=== PATIENT | male | born 1955 | race Caucasian/White ===

== ENCOUNTER 2020-05-03 19:34 | Inpatient (IN) | payer OTHER, MEDICARE, SELFPAY ==
[2020-05-03 19:34] VITALS: BP 127/70; PULSE 85; RESP 18; TEMP 36.2; O2SAT 95; BMI 45.6
--- NOTE | 2020-05-03 19:43 | EKG12_ITS ---
Test Reason : SYNCOPE Blood Pressure : / mmHG Vent. Rate : 084 BPM Atrial Rate : 084 BPM P-R Int : 150 ms QRS Dur : 084 ms QT Int : 400 ms P-R-T Axes : 036 012 007 degrees QTc Int : 472 ms Normal sinus rhythm Inferior infarct , age undetermined , cannot be excluded Poor R wave progression Abnormal ECG Confirmed by DREAD LYNN, KETAN ([id number]), continuity editor TIA SHERMAN ([id number]) on 05/05/2020 9:12:57 AM Referred By: DL Confirmed By:KETAN CANADA MD
--- NOTE | 2020-05-03 19:43 | CT_ITS ---
STUDY: CT BRAIN WITHOUT CONTRAST REASON FOR EXAM: Male, 65 years old. CONFUSION, WEAKNESS WORSENING THE PAST FEW DAYS RADIATION DOSAGE (If Supplied By Facility): CTDIvol = ( 44.99 ) mGy, DLP = ( 829.85 ) mGycm TECHNIQUE: Transaxial CT imaging of the brain was performed without administration of intravenous contrast material. Individualized dose optimization techniques were used for this CT. COMPARISON: No relevant priors. FINDINGS: Normal soft tissue structures. Normal calvarium. Normal size ventricles and extra-axial spaces for the patient''s age. Normal white matter tracts of the cerebral hemispheres. Probable old lacunar infarct in the left basal ganglia. Normal thalami. Normal brainstem. Normal cerebellum. There is no intracranial hemorrhage. There are no findings of an acute ischemic infarction. Left frontal sinus mucosal thickening. CT/Brain/Head without Contrast IMPRESSION: Normal unenhanced CT scan of the brain. Electronically Signed: Yakov Don DO at 20:47 EDT Tel [phone], Service support ,
--- NOTE | 2020-05-03 19:44 | ED.DCSUM_ITS ---
History of Present Illness Chief Complaint: Weakness Informant: Patient, Friend Onset: Days Context: Gradual Onset Timing: Continuous Current Severity: Moderate Maximum Severity: Moderate Narrative: Patient is a 65-year-old male with medical history significant for diabetes who presents to the emergency department with generalized weakness. Patient states for the past 3 or 4 days, he has just not been feeling himself. He has had diminished appetite, has been feeling lightheaded, and just had no energy. He denies any fevers or chills. He denies cough or headache. He states that he does not feel steady on his feet. History is hard to gather from the patient because he does appear to be confused. Friend at the bedside said genevieve was called to his house today but he refused transport. His friend is the one that brought him in. The patient states that he has not taken his medications in a few days. He does not monitor his blood sugar. Prior similar symptoms: No Recent Illness/Hospitalization: No Past Medical History - Allergies and Home Meds Allergies/Adverse Reactions: Allergies Unable to Assess Allergy (Verified 05/03/20 19:37) Primary Care Physician: [place] [place] [Primary Care Provider] - Prior records reviewed: Yes Past Medical History: - - Diabetes Surgical History: noncontributory Review of Systems ROS: Unable to Obtain Physical Exam Vital Signs/Narrative: Vital Signs Temp Pulse Resp BP Pulse Ox 05/03/20 19:34 97.1 F L 85 18 127/70 H 95 Inital Vital Signs reviewed: Yes General: Well nourished, Well developed, Obese Head: Normocephalic, Atraumatic Eyes: Perrl, EOMI ENT: Moist mucous membranes, No rhinorrhea Neck: Supple, Nontender Cardiovascular: Regular rate, Regular rhythm, No murmurs Respiratory: No distress, CTA bilaterally, Chest nontender Abdomen: Soft, Nontender, Nondistended, Normal bowel sounds Back: Nontender, Normal Inspection Extremities: Nontender, Edema Skin: Normal color, No rash Neurological: Cranial nerves II-XII grossly intact, Normal Strength, Normal Sensation, Inattentive Psychological: Normal affect, Normal Mood Diagnostic/Tx/Re-eval Clinical Impression(s) from Imaging Studies Brain CT 05/03/20 19:43 IMPRESSION: Normal unenhanced CT scan of the brain. Electronically Signed: Yakov Don DO at 20:47 EDT Tel [phone], Service support , Chest X-Ray 05/03/20 20:20 IMPRESSION: Mild patchy interstitial prominence. Electronically Signed: Yakov Don DO at 20:51 EDT Tel [phone], Service support , Abnormal Lab Results 05/03/20 05/03/20 05/03/20 19:50 19:50 21:05 WBC 4.3 L RBC 5.44 Hgb 15.6 Hct 48.1 MCV 88.4 MCH 28.7 MCHC 32.4 RDW Std Deviation 41.6 RDW Coeff of Neil 12.8 Plt Count 151 MPV 10.3 Immature Gran % (Auto) 0.700 Neut % (Auto) 72.7 H Lymph % (Auto) 19.2 Hawkins % (Auto) 7.2 Eos % (Auto) 0.0 Baso % (Auto) 0.2 Absolute Neuts (auto) 3.1 Absolute Lymphs (auto) 0.82 L Nucleated RBC % 0 Platelet Estimate ADEQUATE RBC Morphology N CHROM Anisocytosis RARE Sodium 133 L Potassium 3.8 Chloride 99 Carbon Dioxide 25.0 Anion Gap 9 BUN 16 Creatinine 1.36 H Estim Creat Clear Calc 50.99 Est GFR (MDRD) Af Amer 67 Est GFR (MDRD) Non-Af 56 L BUN/Creatinine Ratio 11.8 Glucose 148 H Calcium 7.9 L Total Bilirubin 0.90 AST 100 H ALT 92 H Alkaline Phosphatase 66 Total Protein 7.5 Albumin 3.0 L Globulin 4.5 H Albumin/Globulin Ratio 0.7 L Urine Color Urine Clarity Urine pH Ur Specific [place] Urine Protein Urine Glucose (UA) Urine Ketones Urine Occult Blood Urine Nitrite Urine Bilirubin Urine Urobilinogen Ur Leukocyte Esterase Urine RBC Urine WBC Ur Squamous Epith Cells Urine Bacteria Hyaline Casts Urine Mucus COVID-19 (CHAITANYA) Detected 05/03/20 22:22 WBC RBC Hgb Hct MCV MCH MCHC RDW Std Deviation RDW Coeff of Neil Plt Count MPV Immature Gran % (Auto) Neut % (Auto) Lymph % (Auto) Hawkins % (Auto) Eos % (Auto) Baso % (Auto) Absolute Neuts (auto) Absolute Lymphs (auto) Nucleated RBC % Platelet Estimate RBC Morphology Anisocytosis Sodium Potassium Chloride Carbon Dioxide Anion Gap BUN Creatinine Estim Creat Clear Calc Est GFR (MDRD) Af Amer Est GFR (MDRD) Non-Af BUN/Creatinine Ratio Glucose Calcium Total Bilirubin AST ALT Alkaline Phosphatase Total Protein Albumin Globulin Albumin/Globulin Ratio Urine Color Yellow Urine Clarity Sl. Cloudy Urine pH 5.0 Ur Specific [place] 1.025 Urine Protein 100 H Urine Glucose (UA) 50 H Urine Ketones 15 H Urine Occult Blood 10 H Urine Nitrite Negative Urine Bilirubin 1 H Urine Urobilinogen 8 H Ur Leukocyte Esterase 25 H Urine RBC 0 SEEN Urine WBC 0-5 SEEN Ur Squamous Epith Cells 5-10 SEEN Urine Bacteria 0 SEEN Hyaline Casts 5-10 SEEN Urine Mucus 1+ COVID-19 (CHAITANYA) - Rhythm Strip Rhythm Strip: Sinus Rhythm Rate: 80 Ectopy: None - EKG Initial EKG Interpretation: Sinus Rhythm, No Acute Injury Pattern Prior: No Prior - Medical Decision Making The patient is a 65-year-old male who presents to the emergency department with confusion and generalized malaise. I did watch him ambulate. He does have definitive ataxia when he is ambulating. Noncontrast head CT was obtained. This was unremarkable for acute process. The patient has had the symptoms for 3 days. Chest x-ray showed questionable interstitial prominence. The patient is not hypoxic or tachycardic. Screening labs are relatively unremarkable. Covid test was positive. With the patient's Covid symptoms and ataxia, I do feel that he would benefit from admission for potential MRI. The patient was discussed with the hospitalist. Impression 1. COVID-19 infection 2. Ataxia ED Disposition - Plan for ED Patient: [facility] [Primary Care Provider] -
[2020-05-03 20:01] VITALS: PULSE 84; RESP 23; O2SAT 96
[2020-05-03 20:04] LABS: Absolute Lymphocyte Count 0.82 X10^3/uL (0.83-4.51); Absolute Neutrophil Count 3.1 X10^3/uL (2.0-7.7); Basophil# 0.01 X10^3/uL; Basophil% 0.2 % (0-1); Hematocrit 48.1 % (40-54); Hemoglobin 15.6 g/dL (13.0-16.5); Lymphocyte # 0.82 X10^3/ul (4.0); Lymphocyte % 19.2 % (19-41); Mean Corp Hgb Conc 32.4 g/dL (32-36); Mean Corpuscular Hgb 28.7 pg (27.0-32.0); Mean Corpuscular Volume 88.4 fL (80-94); Mean Platelet Vol. 10.3 fl (6.2-12.0); Monocyte# 0.31 X10^3/uL; Monocyte% 7.2 % (0-10); NRBC Flagged by Analyzer 0 % (0-5); Neutrophil # 3.11 X10^3/uL (2.7-7.7); Neutrophil % 72.7 % (47-70); POSITIVE MORPHOLOGY YES; Platelet Count 151 K/mm3 (150-450); RBC Distribution Width CV 12.8 % (11.6-14.6); RBC Distribution Width SD 41.6 fl (35.1-43.9); Red Blood Count 5.44 M/mm3 (4.6-6.2); White Blood Count 4.3 K/mm3 (4.4-11.0)
[2020-05-03 20:20] LABS: ALB/GLOB Ratio 0.7 RATIO (0.9-2.4); AST(SGOT) 100 U/L (15-37); Alanine Aminotransfer ALT/SGPT 92 U/L (16-61); Alkaline Phosphatase 66 U/L (45-117); Anion Gap 9 (5-15); BUN 16 mg/dL (7-18); BUN/Creat Ratio 11.8 RATIO (10-20); Calcium,Total 7.9 mg/dL (8.5-10.1); Chloride 99 mmol/L (98-107); Creatinine, Serum 1.36 mg/dL (0.70-1.30); EST Glomerular Filtration Rate 56 mL/min (>60); Est Glom Filt Rate - Afr Amer 67 mL/min (>60); Estimated Creatinine Clearance 50.99 ml/min; Globulin 4.5 g/dL (2.2-4.2); Glucose 148 mg/dL (74-106); Potassium 3.8 mmol/L (3.5-5.1); Protein, Total 7.5 g/dL (6.4-8.2); Sodium Level 133 mmol/L (136-145)
--- NOTE | 2020-05-03 20:20 | RAD_ITS ---
STUDY: X-RAY CHEST REASON FOR EXAM: Male, 65 years old. WEAKNESS, CONFUSION. WORSENING OVER PAST FEW DAYS. PT UNABLE TO ANSWER SIMPLE HEALTH QUESTIONS IN TRIAGE. TECHNIQUE: Frontal view COMPARISON: None. FINDINGS: Slightly elevated right hemidiaphragm. Patchy interstitial densities bilaterally. Normal size heart. Normal mediastinum and nidhi. Normal visualized pulmonary arteries. Normal visualized aortic arch and descending thoracic aorta. Degenerative changes of the thoracic spine. Right clavicular old injury. There is no demonstrated abnormality of the visualized soft tissue structures of the upper abdomen. RAD/Chest 1 View (Portable) IMPRESSION: Mild patchy interstitial prominence. Electronically Signed: Yakov Don DO at 20:51 EDT Tel [phone], Service support ,
[2020-05-03 20:38] LABS: Differential Indicated SCAN CRITERIA MET
[2020-05-03 21:02] LABS: Anisocytosis RARE; Platelet Estimate ADEQUATE (ADEQ); Red Cell Morphology N CHROM NORMAL (NORM C&C)
[2020-05-03 21:44] VITALS: BP 149/57; PULSE 80; RESP 29; O2SAT 96
[2020-05-03 22:08] VITALS: BP 174/68; PULSE 90; RESP 24; O2SAT 96
[2020-05-03 22:28] LABS: Bacteria 0 SEEN /hpf (None Seen); Red Blood Cells-Urine 0 SEEN /hpf (0-5)
[2020-05-03 22:29] LABS: Color, Urine Yellow (Yellow); Glucose, Dipstick 50 mg/dl (Normal); Ketone-Dipstick 15 mg/dl (Negative); Leukocyte Esterase-Dipstick 25 /ul (Negative); Nitrite-Dipstick Negative (Negative); Occult Blood-Urine 10 /ul (Negative); Protein-Dipstick 100 mg/dl (Negative); Specific Gravity, Urine 1.025 (1.002-1.030); Urine Clarity Sl. Cloudy (Clear); Urine Urobilinogen 8 mg/dl (Normal)
[2020-05-03 22:43] LABS: Hyaline Cast 5-10 SEEN /lpf (0-5); Mucous, Urine 1+ /hpf (<or=2+); Squamous Epithelial Cells - UA 5-10 SEEN /hpf (0-5); Urine Bilirubin Dipstick 1 mg/dL (Negative); White Blood Cells 0-5 SEEN /hpf (0-5)
[2020-05-03 23:58] VITALS: BP 166/73; PULSE 84; RESP 16; O2SAT 100
[2020-05-04] VITALS (9 sets, daily range): BP systolic 144–164; BP diastolic 63–81; PULSE 85–100; RESP 16–31; TEMP 36.8–38.4; O2SAT 92–99; BMI 40.5; BMI 40.6
--- NOTE | 2020-05-04 01:10 | PCM.HP.STD ---
Problem List (1) Ataxia Status: Acute (2) COVID-19 virus infection Status: Acute History of Present Illness Date of Admission: 05/04/20 Chief Complaint: malaise The patient is a 65 year old M with a significant history of hypertension and diabetes who presents emergency department with malaise for 3 to 4 days. Reportedly patient did not want to come to the hospital but his brother made him come in. Associated with his symptoms is fatigue, weakness and intermittent nonproductive cough. Also patient is unsteady on his feet. Emergent department doctor reportedly observed patient's walking and realized that indeed patient was very unsteady on his feet and actually recommend the patient have an MRI. Also although patient denies confusion he reported his brother thought that he was confused. Past Medical History Medical History: Medical History (Last Updated 05/04/20 @ 01:[address] Jethro López MD) Diabetes E11.9 Hypertension I10 Allergies Unable to Assess Allergy (Verified 05/03/20 19:37) Home Medications: Ambulatory Orders Medication Instructions Recorded Atenolol [Tenormin (beta Filipe)] 25 mg PO DAILY 05/04/20 Glipizide [Glucotrol] 10 mg PO BID 05/04/20 Lisinopril [Zestril] 30 mg PO DAILY 05/04/20 Surgical History: no surgical history Smoking Status: Never smoker Tobacco Use: Non-smoker - *Family History Maternal History Items: - - Patient denies knowledge of maternal medical history. Paternal History Items: Heart Disease Review of Systems Constitutional: Reports: Weakness, Fatigue. Denies: Chills, Fever, Weight Change HEENT: Denies: Head Aches, Sinus Congestion, Sinus Drainage Cardiovascular: Denies: Chest Pain, Palpitations Respiratory: Reports: Cough - Intermittent. Denies: Shortness of breath at rest, Sputum production Gastrointestinal: Denies: Abdominal Pain, Nausea, Vomiting Genitourinary: Denies: Dysuria Musculoskeletal: Denies: Joint Pain, Joint Tenderness Skin: Denies: Rash, Wounds Neurological: Denies: Numbness, Tingling, Focal weakness Psychiatric: Denies: Anxiety, Depression, Homicidal Ideations, Suicidal Ideations Hematologic/ Lymphatic: Denies: Easy Bruising, Easy Bleeding VTE Information - Inpt Only VTE Present on Admission: No VTE Mechan Device Prophylaxis: None VTE Pharm Prophylaxis ordered?: Yes Patient Problems: Active and Suspected Problems (Last Updated 05/04/20 @ 01:[address] Jethro López MD) Ataxia (Acute) COVID-19 virus infection (Acute) - Physical Exam Vitals/I&O's: Vital Signs Temp Pulse Resp BP Pulse Ox 98.2 F 88 31 H 158/81 H 99 05/04/20 00:20 05/04/20 00:20 05/04/20 00:20 05/04/20 00:20 05/04/20 00:20 Oxygen Delivery Method Room Air Weight: 136.078 kg Body Mass Index (BMI) 45.6 Intake and Output for Last 24 Hours 05/02/20 05/03/20 05/04/20 23:59 23:59 23:59 Intake Total 500 / 500 Balance 500 / 500 General: Alert, Oriented x3, Cooperative HEENT: Atraumatic, PERRLA, EOMI, Normocephalic Neck: Supple, No JVD, Negative Carotid Bruits Lungs: Clear to auscultation, Normal air movement Cardiovascular: Regular rate, Normal S1, Normal S2, No murmurs Abdomen: Bowel Sounds Present, Soft, Non Tender Extremities: No edema, Capillary Refill Less than 3 Seconds Skin: No rashes, No breakdown Musculoskeletal: No Tenderness to Palpation of Joints or Extremities Neurological: Cranial nerves II-XII grossly intact, Deep Tendon Reflexes 2+/4 and Symmetrical, Neuro grossly intact, Motor Exam 5/5 strength throughout, - - [id number] test normal. Psych/Mental Status: Normal Affect, Appropriate Laboratory Results 05/03/20 19:50: WBC 4.3 L, RBC 5.44, Hgb 15.6, Hct 48.1, MCV 88.4, MCH 28.7, MCHC 32.4, RDW Std Deviation 41.6, RDW Coeff of Neil 12.8, Plt Count 151, MPV 10.3, Immature Gran % (Auto) 0.700, Neut % (Auto) 72.7 H, Lymph % (Auto) 19.2, Douglas % (Auto) 7.2, Eos % (Auto) 0.0, Baso % (Auto) 0.2, Absolute Neuts (auto) 3.1, Absolute Lymphs (auto) 0.82 L, Nucleated RBC % 0, Platelet Estimate ADEQUATE, RBC Morphology N CHROM, Anisocytosis RARE 05/03/20 19:50: Sodium 133 L, Potassium 3.8, Chloride 99, Carbon Dioxide 25.0, Anion Gap 9, BUN 16, Creatinine 1.36 H, Estim Creat Clear Calc 50.99, Est GFR (MDRD) Af Amer 67, Est GFR (MDRD) Non-Af 56 L, BUN/Creatinine Ratio 11.8, Glucose 148 H, Calcium 7.9 L, Total Bilirubin 0.90, AST 100 H, ALT 92 H, Alkaline Phosphatase 66, Total Protein 7.5, Albumin 3.0 L, Globulin 4.5 H, Albumin/Globulin Ratio 0.7 L 05/03/20 21:05: COVID-19 (CHAITANYA) Detected 05/03/20 22:22: Urine Color Yellow, Urine Clarity Sl. Cloudy, Urine pH 5.0, Ur Specific [place] 1.025, Urine Protein 100 H, Urine Glucose (UA) 50 H, Urine Ketones 15 H, Urine Occult Blood 10 H, Urine Nitrite Negative, Urine Bilirubin 1 H, Urine Urobilinogen 8 H, Ur Leukocyte Esterase 25 H, Urine RBC 0 SEEN, Urine WBC 0-5 SEEN, Ur Squamous Epith Cells 5-10 SEEN, Urine Bacteria 0 SEEN, Hyaline Casts 5-10 SEEN, Urine Mucus 1+ Current Medications Labetalol HCl (Labetalol (Prefilled) 20 Mg/4 Ml) 10 mg IV Q4 PRN PRN Reason: SBP > 220 OR DBP > 120 Assessment/Plan All Active Problems (Last Updated 05/04/20 @ 01:[address] Jethro López MD) Ataxia (Acute) COVID-19 virus infection (Acute) COVID-19 infection Chest x-ray interpreted by radiologist and chest x-ray image reviewed by me: Mild patchy interstitial prominence. We will observe patient at the Covid cohort unit. Infectious disease consult and pulmonary medicine consult. Patient with no symptoms of shortness of breath. Patient has no fever. Procalcitonin, Legionella urine antigen and strep pneumoniae urine antigen ordered. Ataxia CT brain did not show any acute disease. We will order MRI brain without contrast We will start patient on aspirin Hold home blood pressure medication. Permissive hypertension with blood pressure control with labetalol. Check vitamin B12. Diabetes mellitus Patient with hyperglycemia presentation Home glipizide continue Accu-Chek q. ACH S. Hypertension Blood pressure elevated. However with ataxia we will hold off home blood pressure medication. Permissive hypertension with labetalol as above. Trend blood pressures. DVT prophylaxis Subcutaneous Lovenox by Covid protocol. OBSV E&M: [id number] Initial observation care L2
--- NOTE | 2020-05-04 01:26 | MRI_ITS ---
We are attempting to reach an attending provider to discuss findings. An addendum with communication details will be sent when the communication is complete. STUDY: MRI BRAIN WITHOUT CONTRAST REASON FOR EXAM: Male, 65 years old. ataxia, PT UNABLE TO FOLLOW COMMANDS, COVID POSITIVE TECHNIQUE: Standardized multiplanar fat and water weighted pulse sequences were obtained. COMPARISON: CT 05/03/2020 FINDINGS: Normal size of the ventricles and extra-axial spaces for the patient''s age. Normal white matter tracts of the supratentorial brain. Hyperintensities of the left side of the nikki and in the inferior right occipital lobe which demonstrate restricted diffusion consistent with acute/subacute infarcts. Normal T2* images of the brain without demonstrated susceptibility artifact. There is no demonstrated hemosiderin stain. Normal bilateral basal ganglia. Normal thalami. There is no extra-axial fluid accumulation. Normal flow voids within the major intracranial circulation suggesting patency by spin echo criteria. Normal sella turcica, pituitary gland, infundibular stalk, optic chiasm and hypothalamus. Normal tectal plate and pineal gland. Normal midbrain, nikki and medulla. Normal cerebellum. Normal basal cisterns. Normal bilateral temporal bones. Normal bilateral internal auditory canals. No demonstrated orbital abnormality, within the constraints of a routine brain study. Opacification of the left frontal sinus consistent with acute sinusitis. Normal calvarium and skull base. Normal visualized soft tissue structures. Normal visualized upper cervical spine. 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 Electronically Signed: Gordon Sharpe MD at 13:48 EDT Tel , Service support ,
[2020-05-04 06:49] LABS: Absolute Neutrophil Count 2.8 X10^3/uL (2.0-7.7); Basophil# 0.01 X10^3/uL; Basophil% 0.2 % (0-1); Hematocrit 43.1 % (40-54); Hemoglobin 14.2 g/dL (13.0-16.5); Lymphocyte % 24.4 % (19-41); Mean Corp Hgb Conc 32.9 g/dL (32-36); Mean Corpuscular Volume 88.1 fL (80-94); Mean Platelet Vol. 11.7 fl (6.2-12.0); Monocyte# 0.28 X10^3/uL; Monocyte% 6.8 % (0-10); NRBC Flagged by Analyzer 0 % (0-5); Neutrophil # 2.77 X10^3/uL (2.7-7.7); Neutrophil % 67.9 % (47-70); POSITIVE COUNT YES; POSITIVE MORPHOLOGY YES; Platelet Count 112 K/mm3 (150-450); RBC Distribution Width CV 12.6 % (11.6-14.6); Red Blood Count 4.89 M/mm3 (4.6-6.2); White Blood Count 4.1 K/mm3 (4.4-11.0)
[2020-05-04 07:06] LABS: Differential Indicated SCAN CRITERIA MET
[2020-05-04 07:17] LABS: ALB/GLOB Ratio 0.7 RATIO (0.9-2.4); AST(SGOT) 89 U/L (15-37); Alanine Aminotransfer ALT/SGPT 78 U/L (16-61); Albumin, Serum 2.7 g/dL (3.2-5.0); Alkaline Phosphatase 56 U/L (45-117); Anion Gap 9 (5-15); BUN 15 mg/dL (7-18); BUN/Creat Ratio 17.1 RATIO (10-20); Calcium,Total 7.6 mg/dL (8.5-10.1); Chloride 99 mmol/L (98-107); Creatinine, Serum 0.88 mg/dL (0.70-1.30); EST Glomerular Filtration Rate 92 mL/min (>60); Est Glom Filt Rate - Afr Amer 112 mL/min (>60); Estimated Creatinine Clearance 78.81 ml/min; Glucose 105 mg/dL (74-106); Potassium 3.5 mmol/L (3.5-5.1); Protein, Total 6.7 g/dL (6.4-8.2); Sodium Level 133 mmol/L (136-145)
[2020-05-04 07:29] LABS: Platelet Estimate SLT DEC (ADEQ)
[2020-05-04 07:30] LABS: Atypical Lymphocyte RARE %
[2020-05-04 07:31] LABS: Bedside Glucose 114 mg/dL (70-110)
[2020-05-04 07:31] LABS: Anisocytosis RARE; Differential Comment SCANNED; Platelet Morphology CLUMPED
--- NOTE | 2020-05-04 08:00 | PCM.PN.BLA ---
Progress Note 65-year-old male with past medical history of hypertension type II DM who comes in with fatigue, cough and shortness of breath. Patient was seen and examined. He remains not on oxygen. Vitals reviewed. Procalcitonin elevated. Urine Legionella and streptococcal antigen negative. MRI of the brain is pending. Vitamin B12 is elevated. Blood sugars are controlled. Will review and reevaluate home blood pressure medications after MRI brain report is done Awaiting PT/OT evaluations
[2020-05-04 09:38] LABS: Procalcitonin 0.21 ng/mL (0.00-0.09); Vitamin B12 1047 pg/mL (211-911)
[2020-05-04] MEDS: glipiZIDE 10 MG Tablet PO (10:12)
[2020-05-04] MEDS: Aspirin E.C. 81 MG Tablet PO (10:12)
[2020-05-04] MEDS: Acetaminophen 325 MG Tablet 650 MG PO (10:12)
[2020-05-04] MEDS: Enoxaparin 40 MG/0.4 ML Syringe SC ×2 (10:12→21:46)
--- NOTE | 2020-05-04 14:01 | TELEMED_ITS ---
[facility] Tele[facility] has confirmed receipt of a request for visit. This document confirms receipt of the order initiating the consult. To find the results of the consultation, please view the patient's reports for the scanned Telemed Consult.
--- NOTE | 2020-05-04 14:03 | ECHOL_ITS ---
Reason For Study: TIA/CVA Procedure This was a limited 2D transthoracic echocardiogram. The exam was abbreviated due to the COVID 19 protocol. Exam performed portable in patient room. Left Ventricle Normal LV size. The estimated ejection fraction is 55 %. No evidence for diastolic dysfunction. No regional wall motion abnormalities noted. Right Ventricle Normal RV size. Normal systolic function. Atria Normal left atrium. Normal right atrium. Bubble contrast study negative for right to left interatrial shunt. Mitral Valve There is no mitral valve stenosis. No mitral valve insufficiency. Tricuspid Valve There is no tricuspid stenosis. Unable to estimate RV systolic pressure due to inadequate jet, pulmonary artery pressure probably normal. Aortic Valve Aortic sclerosis, no stenosis. There is no aortic stenosis. No aortic valve insufficiency. Pulmonic Valve There is no pulmonic valvular stenosis. No pulmonic valve insufficiency. Great Vessels Normal aortic root. Pericardium/Pleural No pericardial effusion. Medication Performed a rapid injection of agitated mix of 9 cc saline and 1cc air to assess for atrial septal defect. MMode/2D Measurements & Calculations LVIDd: 5.0 cm IVSd: 1.1 cm Ao root diam: 3.3 cm LVIDs: 3.4 cm LVPWd: 1.4 cm FS: 32.9 % LA dimension(2D): 3.7 cm Interpretation Summary The estimated ejection fraction is 55 %. No evidence for diastolic dysfunction. The study was technically difficult. Ordering Physician: Rebecca Hubbard Performed By: Sarah Pagan RDCS
--- NOTE | 2020-05-04 14:08 | CASEMGMT ---
RN CM called patient for initial transition planning/care coordination assessment. RN GEM introduced self and role at [facility]. Patient is alert and oriented. Patient willing to participate in assessment and is able to answer all questions appropriately. Care providers, pharmacy, and demographics verified. Patient wishes to discharge home, denies need for home health at this time. Patient states he has no further needs or concerns at this time. CM to follow for discharge planning needs that may arise. PCP: [facility] Specialists: [facility] Preferred Pharmacy: [facility], patient ok with [facility] retail at discharge. Insurance: [employer], [employer] [facility] PPO Prescription Benefit: yes Living Will/HPOA: yes, brother Dre LNOK: brother Rafael and Sister Gloria listed on facesheet Living Arrangements: Patient lives in a one story home with few steps to get into the home. Patient states he is independent. Transportation: self/friend DME/HHC: Patient states he has cane and glucometer with testing supplies. Patient states he know how to check blood sugars he just doesn't do it. Will monitor for need for HHC and oxygen at discharge. Disposition Plan: Patient to discharge home with follow-up plans in place. Huma MCMILLAN, RN, CM
--- NOTE | 2020-05-04 14:22 | NURSING ---
spoke with Rafael Esparza- pt brother and updated on pt status including transfer to PCU. Brother states he is personal financial advisor for patient and number listed in demographics for cell phone number is correct [phone].
--- NOTE | 2020-05-04 14:26 | CT_ITS ---
STUDY: CTA HEAD AND NECK WITH CONTRAST REASON FOR EXAM: Male, 65 years old. Acute stroke, confusion, trouble following commands, abnormal MRI-acute/subacute infarcts left nikki and amp; brain stem and right occipital lobe, COVID +. Patient coughed in the middle of the contrasted scan-second scan done. RADIATION DOSAGE (If Supplied By Facility): CTDIvol = ( 28.92 ) mGy, DLP = ( 2506.41 ) mGycm TECHNIQUE: CT angiography was performed with a multi-detector CT scanner. Data acquisition was obtained from the skull base through the vertex following intravenous administration of IV 100mL [id number]-370. MIP images were reconstructed from the axial data set. Post-processing of the angiographic images was performed, with multiplanar reformation and 3D reconstruction. Individualized dose optimization techniques were used for this CT. COMPARISON: No relevant priors. FINDINGS: Normal bilateral petrous carotid arteries. There is calcified plaque formation of the right cavernous carotid artery, without a cross-sectional luminal stenosis. There is calcified plaque formation of the left cavernous carotid artery, without a cross-sectional luminal stenosis. Normal right A1 segments of the anterior cerebral artery. Normal left A1 segments of the anterior cerebral artery. Normal intact anterior communicating artery (ACOM). Normal bilateral A2 segments of the anterior cerebral arteries. Normal right M1 and M2 segments of the middle cerebral arteries, with a normal M1 bifurcation. Normal left M1 and M2 segments of the middle cerebral arteries, with a normal M1 bifurcation. Normal right posterior communicating artery (PCOM). Normal left posterior communicating artery (PCOM). Normal bilateral vertebral arteries. Normal basilar artery with a normal basilar bifurcation. The visualized bilateral superior cerebellar (SCA) arteries are normal. Focal severe (80%) stenosis the proximal P1 segment of the right posterior cerebral artery with the attenuation of the distal posterior cerebral artery consistent with a right posterior cerebral artery infarct. There is no demonstrated aneurysm of the [place]. There is no demonstrated abnormality of the visualized brain. AORTIC ARCH: Normal visualized aortic arch. Normal origins of the brachiocephalic, left common carotid, and left subclavian arteries. RIGHT CAROTID ARTERIES: Normal right common carotid artery (CCA). Normal right common carotid bulb. Normal origin of the right internal carotid (ICA) artery without a hemodynamically significant stenosis. Normal visualized cervical portion of the right internal carotid artery. Normal origin of the right external carotid artery (ECA). LEFT CAROTID ARTERIES: Normal left common carotid artery (CCA). Normal left common carotid bulb. Normal origin of the left internal carotid (ICA) artery without a hemodynamically significant stenosis. Normal visualized cervical portion of the left internal carotid artery. Normal origin of the left external carotid artery (ECA). VERTEBRAL ARTERIES: Normal bilateral vertebral arteries. IMPRESSION: 1. 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 2. No carotid stenosis. 3. Patent vertebral arteries bilaterally. Electronically Signed: Gordon Sharpe MD at 17:23 EDT Tel , Service support , STUDY: CT BRAIN WITHOUT CONTRAST REASON FOR EXAM: Male, 65 years old. Acute stroke, confusion, trouble following commands, abnormal MRI-acute/subacute infarcts left nikki and amp; brain stem and right occipital lobe, COVID +. Patient coughed in the middle of the contrasted scan-second scan done. RADIATION DOSAGE (If Supplied By Facility): CTDIvol = ( ) mGy, DLP = ( ) mGycm TECHNIQUE: Transaxial CT imaging of the brain was performed without administration of intravenous contrast material. Individualized dose optimization techniques were used for this CT. COMPARISON: 05/03/2020 FINDINGS: Normal soft tissue structures. Normal calvarium. Normal size ventricles and extra-axial spaces for the patient''s age. Normal white matter tracts of the cerebral hemispheres. Normal basal ganglia and thalami. Normal brainstem. Normal cerebellum. There is no intracranial hemorrhage. There are no findings of an acute ischemic infarction. Opacification of the left frontal sinus consistent with sinusitis. CT/CTA Head AND Neck W/ Contrast IMPRESSION: Normal unenhanced CT scan of the brain. Electronically Signed: Gordon Sharpe MD at 17:22 EDT Tel , Service support ,
[2020-05-04 14:36] LABS: Bedside Glucose 170 mg/dL (70-110)
[2020-05-04 15:28] LABS: Hemoglobin A1c 10.2 % (3.8-5.6)
--- NOTE | 2020-05-04 16:22 | PCM.HP.ID ---
Problem List (1) COVID-19 virus infection Status: Acute Reason for Consult: covid Consulted by: Dr. Hubbard History of Present Illness: The patient is a 65 year old M with h/o htn, presented to the ED last night with 3-4 days of fatigue, not feeling well, developed confusion, difficulty walking. Taken to ED by his brother. He lives alone, no sick contacts. Covid (+), admitted on dex. Fever to 101.2. MRI this afternoon showed brain stem infarcts. Full ROS performed and neg except as noted above. - Medical History Surgical History: reviewed Allergies/Adverse Reactions: Allergies Unable to Assess Allergy (Verified 05/03/20 19:37) Home Medications: Ambulatory Orders Medication Instructions Recorded Atenolol [Tenormin (beta Filipe)] 25 mg PO DAILY 05/04/20 Glipizide [Glucotrol] 10 mg PO BID 05/04/20 Lisinopril [Zestril] 30 mg PO DAILY 05/04/20 - Social History Tobacco Use: non-smoker Vital Signs Temp Pulse Resp BP Pulse Ox 99.5 F H 85 16 144/70 H 92 05/04/20 16:16 05/04/20 16:16 05/04/20 16:16 05/04/20 16:16 05/04/20 16:16 Oxygen Delivery Method Room Air Weight: 121 kg Body Mass Index (BMI) 40.5 Microbiology Past 72 Hours 05/03/20 22:22 Legionella Antigen - Final Urine, Clean Catch Streptococcus pneumoniae Antigen (M - Final Laboratory Tests Past 24 Hrs 05/03/20 05/03/20 05/03/20 19:50 19:50 21:05 WBC 4.3 L RBC 5.44 Hgb 15.6 Hct 48.1 MCV 88.4 MCH 28.7 MCHC 32.4 RDW Std Deviation 41.6 RDW Coeff of Neil 12.8 Plt Count 151 MPV 10.3 Immature Gran % (Auto) 0.700 Neut % (Auto) 72.7 H Lymph % (Auto) 19.2 [place] % (Auto) 7.2 Eos % (Auto) 0.0 Baso % (Auto) 0.2 Absolute Neuts (auto) 3.1 Absolute Lymphs (auto) 0.82 L Nucleated RBC % 0 Differential Comment Atypical Lymphocytes Platelet Estimate ADEQUATE Plt Morphology Comment RBC Morphology N CHROM Anisocytosis RARE Sodium 133 L Potassium 3.8 Chloride 99 Carbon Dioxide 25.0 Anion Gap 9 BUN 16 Creatinine 1.36 H Estim Creat Clear Calc 50.99 Est GFR (MDRD) Af Amer 67 Est GFR (MDRD) Non-Af 56 L BUN/Creatinine Ratio 11.8 Glucose 148 H Hemoglobin A1c Calcium 7.9 L Total Bilirubin 0.90 AST 100 H ALT 92 H Alkaline Phosphatase 66 Total Protein 7.5 Albumin 3.0 L Globulin 4.5 H Albumin/Globulin Ratio 0.7 L Vitamin B12 Procalcitonin Urine Color Urine Clarity Urine pH Ur Specific [place] Urine Protein Urine Glucose (UA) Urine Ketones Urine Occult Blood Urine Nitrite Urine Bilirubin Urine Urobilinogen Ur Leukocyte Esterase Urine RBC Urine WBC Ur Squamous Epith Cells Urine Bacteria Hyaline Casts Urine Mucus COVID-19 (CHAITANYA) Detected 05/03/20 05/04/20 05/04/20 22:22 05:20 05:20 WBC 4.1 L RBC 4.89 Hgb 14.2 Hct 43.1 MCV 88.1 MCH 29.0 MCHC 32.9 RDW Std Deviation 41.0 RDW Coeff of Neil 12.6 Plt Count 112 L MPV 11.7 Immature Gran % (Auto) 0.700 Neut % (Auto) 67.9 Lymph % (Auto) 24.4 [place] % (Auto) 6.8 Eos % (Auto) 0.0 Baso % (Auto) 0.2 Absolute Neuts (auto) 2.8 Absolute Lymphs (auto) 1.00 Nucleated RBC % 0 Differential Comment SCANNED Atypical Lymphocytes RARE Platelet Estimate SLT DEC Plt Morphology Comment CLUMPED RBC Morphology Anisocytosis RARE Sodium Potassium Chloride Carbon Dioxide Anion Gap BUN Creatinine Estim Creat Clear Calc Est GFR (MDRD) Af Amer Est GFR (MDRD) Non-Af BUN/Creatinine Ratio Glucose Hemoglobin A1c Calcium Total Bilirubin AST ALT Alkaline Phosphatase Total Protein Albumin Globulin Albumin/Globulin Ratio Vitamin B12 1047 H Procalcitonin 0.21 H Urine Color Yellow Urine Clarity Sl. Cloudy Urine pH 5.0 Ur Specific [place] 1.025 Urine Protein 100 H Urine Glucose (UA) 50 H Urine Ketones 15 H Urine Occult Blood 10 H Urine Nitrite Negative Urine Bilirubin 1 H Urine Urobilinogen 8 H Ur Leukocyte Esterase 25 H Urine RBC 0 SEEN Urine WBC 0-5 SEEN Ur Squamous Epith Cells 5-10 SEEN Urine Bacteria 0 SEEN Hyaline Casts 5-10 SEEN Urine Mucus 1+ COVID-19 (CHAITANYA) 05/04/20 05/04/20 05:20 05:20 WBC RBC Hgb Hct MCV MCH MCHC RDW Std Deviation RDW Coeff of Neil Plt Count MPV Immature Gran % (Auto) Neut % (Auto) Lymph % (Auto) [place] % (Auto) Eos % (Auto) Baso % (Auto) Absolute Neuts (auto) Absolute Lymphs (auto) Nucleated RBC % Differential Comment Atypical Lymphocytes Platelet Estimate Plt Morphology Comment RBC Morphology Anisocytosis Sodium 133 L Potassium 3.5 Chloride 99 Carbon Dioxide 25.0 Anion Gap 9 BUN 15 Creatinine 0.88 Estim Creat Clear Calc 78.81 Est GFR (MDRD) Af Amer 112 Est GFR (MDRD) Non-Af 92 BUN/Creatinine Ratio 17.1 Glucose 105 Hemoglobin A1c 10.2 H Calcium 7.6 L Total Bilirubin 0.90 AST 89 H ALT 78 H Alkaline Phosphatase 56 Total Protein 6.7 Albumin 2.7 L Globulin 4.0 Albumin/Globulin Ratio 0.7 L Vitamin B12 Procalcitonin Urine Color Urine Clarity Urine pH Ur Specific [place] Urine Protein Urine Glucose (UA) Urine Ketones Urine Occult Blood Urine Nitrite Urine Bilirubin Urine Urobilinogen Ur Leukocyte Esterase Urine RBC Urine WBC Ur Squamous Epith Cells Urine Bacteria Hyaline Casts Urine Mucus COVID-19 (CHAITANYA) - Other Studies Radiology: [] reviewed Other Studies: [] Route of nutrition/ use of supplements: [] Nutritional Intake: [] IV Site: [] Weeks Catheter: [] - Physical Exam General: Alert, Oriented x3, Cooperative HEENT: Atraumatic, PERRLA, EOMI Neck: Supple, No Nodes Lungs: Diminished Cardiovascular: Regular rate, Regular Rhythm Abdomen: Soft, Non Tender, Non-Distended Extremities: No edema Skin: No rashes IV Site: Peripheral, without redness Musculoskeletal: No Tenderness to Palpation of Joints or Extremities - Assessment/Plan Antibiotics: [] Assessment/Plan: [] Active and Suspected Problems (Last Updated 05/04/20 @ 01:[address] Jethro López MD) Ataxia (Acute) COVID-19 virus infection (Acute) covid with hypoxia and brainstem stroke - neuro consulted. Sat 92% on RA with recent onset of symptoms, will treat with dex and remdesivir. Will follow, thank you, d/w nursing
[2020-05-04] MEDS: 0.9% Normal Saline 1,000 ML 75 ML IV (16:33)
--- NOTE | 2020-05-04 16:56 | PCM.CONS.PUL ---
Problem List (1) Acute CVA (cerebrovascular accident) Status: Acute (2) Ataxia Status: Acute (3) COVID-19 virus infection Status: Acute Reason for Consult Date of Consultation: 05/04/20 Reason for Consultation: COVID-19 History of Present Illness: The patient is a 65 year old M, with past medical history listed below, who presented [facility] secondary to generalized weakness over the last 3 to 4 days. Patient was reportedly brought in by his brother because he was not acting like himself. Patient had a diminished appetite and had complained of feeling lightheaded with lack of energy. Patient denied any fevers or chills. Patient had not reported any cough or headache. Patient reportedly had not taken any of his baseline medications in the previous 1 to 2 days. Patient does not actively monitor his blood sugar. In the ER, patient was noted to have definitive ataxia. A noncontrast CT scan was unremarkable of the head. Patient reportedly had symptoms for 3 days, so was outside of the intervention window. Chest x-ray had showed some interstitial prominence despite patient not being tachycardic or hypoxic. COVID-19 testing had come back positive, so the patient was admitted to the floor and ordered an MRI. Laboratory work-up was relatively unremarkable except for a slightly elevated creatinine of 1.36. However, the patient did not have any leukocytosis. Patient did have a mildly elevated glucose at 148. By time I had seen the patient, he had had any MRI completed and was noted to have the findings listed below. Patient is very vague on when he had an onset of symptoms. Patient denies any history of respiratory problems and is never used an inhaler. Patient states he only has high blood pressure and diabetes. 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 Patient is not able to provide much of a reliable review of systems at this time. Past Medical History Medical History: Medical History (Last Updated 05/04/20 @ 01:[address] Jethro López MD) Diabetes E11.9 Hypertension I10 Allergies Unable to Assess Allergy (Verified 05/03/20 19:37) Home Medications: Ambulatory Orders Medication Instructions Recorded Atenolol [Tenormin (beta Filipe)] 25 mg PO DAILY 05/04/20 Glipizide [Glucotrol] 10 mg PO BID 05/04/20 Lisinopril [Zestril] 30 mg PO DAILY 05/04/20 Surgical History: no surgical history Smoking Status: Never smoker Tobacco Use: Non-smoker - *Family History Maternal History Items: - - Patient denies knowledge of maternal medical history. Paternal History Items: Heart Disease Review of Systems Unable to obtain accurate/complete ROS d/t: See HPI Patient Problems: Active and Suspected Problems (Last Updated 05/04/20 @ 01:[address] Jethro López MD) Ataxia (Acute) COVID-19 virus infection (Acute) Objective: All imaging reports were personally reviewed. Chest x-ray shows some mild patchy infiltrates with elevation of the right hemidiaphragm. - Physical Exam Vitals/I&O's: Vital Signs Temp Pulse Resp BP Pulse Ox 37.5 C H 85 16 144/70 H 92 05/04/20 16:16 05/04/20 16:16 05/04/20 16:16 05/04/20 16:16 05/04/20 16:16 Oxygen Delivery Method Room Air Weight: 121 kg Body Mass Index (BMI) 40.5 Intake and Output for Last 24 Hours 05/02/20 05/03/20 05/04/20 23:59 23:59 23:59 Intake Total 500 / 500 522 / 522 Balance 500 / 500 522 / 522 General: Alert, Cooperative, No apparent distress, Confused, - - No dysarthria appreciated. Morbidly obese. HEENT: Atraumatic, PERRLA, Normocephalic, - - Esotropia noted. Oral: Moist Mucosa, No Gingival or Mucosal Lesions/ Ulcerations Neck: Supple, No JVD, No Nodes, Trachea Midline Lungs: Clear to auscultation, Normal air movement, No rhonchi, No wheeze, No rales Cardiovascular: Regular rate, Regular Rhythm, Normal S1, Normal S2, No murmurs, No rub noted, No Gallop Abdomen: Bowel Sounds Present, Soft, Non Tender, Non-Distended, Obese Extremities: No clubbing, No cyanosis, No edema Skin: No rashes, No breakdown Musculoskeletal: No Tenderness to Palpation of Joints or Extremities, No Muscle Wasting Lymphatic: No Cervical, Supraclavicular, or Inguinal Adenopathy Neurological: - - Moves all extremities appropriately. Significant ataxia noted. Disconjugate gaze noted. Psych/Mental Status: Alert and oriented to time, place, person, mood and affect Microbiology Past 72 Hours 05/03/20 22:22 Urine, Clean Catch Legionella Antigen - Final 05/03/20 22:22 Urine, Clean Catch Streptococcus pneumoniae Antigen (M - Final Laboratory Results 05/03/20 19:50: WBC 4.3 L, RBC 5.44, Hgb 15.6, Hct 48.1, MCV 88.4, MCH 28.7, MCHC 32.4, RDW Std Deviation 41.6, RDW Coeff of Neil 12.8, Plt Count 151, MPV 10.3, Immature Gran % (Auto) 0.700, Neut % (Auto) 72.7 H, Lymph % (Auto) 19.2, [place] % (Auto) 7.2, Eos % (Auto) 0.0, Baso % (Auto) 0.2, Absolute Neuts (auto) 3.1, Absolute Lymphs (auto) 0.82 L, Nucleated RBC % 0, Platelet Estimate ADEQUATE, RBC Morphology N CHROM, Anisocytosis RARE 05/03/20 19:50: Sodium 133 L, Potassium 3.8, Chloride 99, Carbon Dioxide 25.0, Anion Gap 9, BUN 16, Creatinine 1.36 H, Estim Creat Clear Calc 50.99, Est GFR (MDRD) Af Amer 67, Est GFR (MDRD) Non-Af 56 L, BUN/Creatinine Ratio 11.8, Glucose 148 H, Calcium 7.9 L, Total Bilirubin 0.90, AST 100 H, ALT 92 H, Alkaline Phosphatase 66, Total Protein 7.5, Albumin 3.0 L, Globulin 4.5 H, Albumin/Globulin Ratio 0.7 L 05/03/20 21:05: COVID-19 (CHAITANYA) Detected 05/03/20 22:22: Urine Color Yellow, Urine Clarity Sl. Cloudy, Urine pH 5.0, Ur Specific [place] 1.025, Urine Protein 100 H, Urine Glucose (UA) 50 H, Urine Ketones 15 H, Urine Occult Blood 10 H, Urine Nitrite Negative, Urine Bilirubin 1 H, Urine Urobilinogen 8 H, Ur Leukocyte Esterase 25 H, Urine RBC 0 SEEN, Urine WBC 0-5 SEEN, Ur Squamous Epith Cells 5-10 SEEN, Urine Bacteria 0 SEEN, Hyaline Casts 5-10 SEEN, Urine Mucus 1+ 05/04/20 05:20: Vitamin B12 1047 H, Procalcitonin 0.21 H 05/04/20 05:20: WBC 4.1 L, RBC 4.89, Hgb 14.2, Hct 43.1, MCV 88.1, MCH 29.0, MCHC 32.9, RDW Std Deviation 41.0, RDW Coeff of Neil 12.6, Plt Count 112 L, MPV 11.7, Immature Gran % (Auto) 0.700, Neut % (Auto) 67.9, Lymph % (Auto) 24.4, [place] % (Auto) 6.8, Eos % (Auto) 0.0, Baso % (Auto) 0.2, Absolute Neuts (auto) 2.8, Absolute Lymphs (auto) 1.00, Nucleated RBC % 0, Differential Comment SCANNED, Atypical Lymphocytes RARE, Platelet Estimate SLT DEC, Plt Morphology Comment CLUMPED, Anisocytosis RARE 05/04/20 05:20: Sodium 133 L, Potassium 3.5, Chloride 99, Carbon Dioxide 25.0, Anion Gap 9, BUN 15, Creatinine 0.88, Estim Creat Clear Calc 78.81, Est GFR (MDRD) Af Amer 112, Est GFR (MDRD) Non-Af 92, BUN/Creatinine Ratio 17.1, Glucose 105, Calcium 7.6 L, Total Bilirubin 0.90, AST 89 H, ALT 78 H, Alkaline Phosphatase 56, Total Protein 6.7, Albumin 2.7 L, Globulin 4.0, Albumin/Globulin Ratio 0.7 L 05/04/20 05:20: Hemoglobin A1c 10.2 H 05/04/20 07:00: POC Glucose 114 H 05/04/20 13:28: POC Glucose 170 H Current Medications Acetaminophen (Acetaminophen 325 Mg Tablet) 650 mg PO Q6H PRN PRN PRN Reason: Pain Score 1-10/Temp > 100.7 F Last Admin: 05/04/20 10:12 Dose: 650 mg Documented by: Aspirin (Aspirin E.C. 81 Mg Tablet) 81 mg PO DAILY [facility] Last Admin: 05/04/20 10:15 Dose: Not Given Documented by: Dexamethasone (Dexamethasone 4 Mg Tablet) 6 mg PO DAILY@0800 [facility] Stop: 05/13/20 08:01 Dextrose (Dextrose 50%-Water 25 Gm/50 Ml Disp.Syrin) 0 gm IV X1 PRN; Protocol PRN Reason: Hypoglycemia Enoxaparin Sodium (Enoxaparin 40 Mg/0.4 Ml Syringe) 40 mg SC BID [facility] Last Admin: 05/04/20 10:12 Dose: 40 mg Documented by: Famotidine (Famotidine 20 Mg Tablet) 20 mg PO BID ERICA Glipizide (Glipizide 10 Mg Tablet) 10 mg PO BID [facility] Last Admin: 05/04/20 10:12 Dose: 10 mg Documented by: Glucagon (Glucagon 1 Mg/Ml Syringe) 1 mg IM .X1 PRN PRN Reason: Hypoglycemia Sodium Chloride () 1,000 mls @ 75 mls/hr IV .[id number] [facility] Stop: 05/05/20 03:49 Last Admin: 05/04/20 16:33 Dose: 75 mls/hr Documented by: Remdesivir (Investigational) (100 mg/ Sodium Chloride) 250 mls @ 125 mls/hr IV DAILY ERICA; Protocol Stop: 05/08/20 11:59 Remdesivir (Investigational) (200 mg/ Sodium Chloride) 250 mls @ 125 mls/hr IV X1 ONE; Protocol Stop: 05/04/20 18:59 Labetalol HCl (Labetalol (Prefilled) 20 Mg/4 Ml) 10 mg IV Q4 PRN PRN Reason: SBP > 220 OR DBP > 120 Melatonin (Melatonin 3 Mg Tablet) 3 mg PO QHS PRN PRN PRN Reason: INSOMNIA Nutritional Formula (Lactose Free) (Glucerna Shake 120 Ml Liquid) 120 ml PO 4X/DAY [facility] Last Admin: 05/04/20 16:24 Dose: Not Given Documented by: Ondansetron HCl (Ondansetron 4 Mg/2 Ml Vial) 4 mg IV Q8H PRN PRN PRN Reason: NAUSEA/VOMITING Sodium Chloride (0.9% Saline Lock 10 Ml Syringe) 10 - 40 ml IV UD PRN PRN Reason: SALINE FLUSH Clinical Impression(s) from Imaging Studies Brain CT 05/03/20 19:43 IMPRESSION: Normal unenhanced CT scan of the brain. Electronically Signed: Yakov Don DO at 20:47 EDT Tel [phone], Service support , Chest X-Ray 05/03/20 20:20 IMPRESSION: Mild patchy interstitial prominence. Electronically Signed: Yakov Don DO at 20:51 EDT Tel [phone], Service support , Brain MRI 05/04/20 01:26 IMPRESSION: Acute/subacute infarcts of the the left side of the nikki and brainstem and the right occipital lobe. Electronically Signed: Gordon Sharpe MD at 13:48 EDT Tel , Service support , ADDENDUM: 05/04/20 1403 IMPRESSION: Acute/subacute infarcts of the the left side of the nikki and brainstem and the right occipital lobe. N.B. : The above information has been verbally conveyed by Gordon Sharpe MD to FLORES carrillo, on 05/04/2020 13:56:43 (ET). Electronically Signed: Gordon Sharpe MD at 13:48 EDT Tel , Service support , ADDENDUM: 05/04/20 1409 IMPRESSION: Acute/subacute infarcts of the the left side of the nikki and brainstem and the right occipital lobe. N.B. : The above information has been verbally conveyed by Gordon Sharpe MD to Cate Ferrell RN, on 05/04/2020 14:02:03 (ET). Electronically Signed: Gordon Sharpe MD at 13:48 EDT Tel , Service support , Assessment/Plan All Active Problems (Last Updated 05/04/20 @ 01:[address] Jethro López MD) Ataxia (Acute) COVID-19 virus infection (Acute) Acute CVA (cerebrovascular accident) (Acute) RECOMMENDATIONS: 1. Acute CVA protocol 2. Monitor oxygen saturations 3. Dexamethasone and remdesivir per infectious disease 4. Please call if patient develops worsening respiratory problems IMPRESSIONS: 1. COVID-19 infection Unclear onset of symptoms as patient does not provide much reliable information. It appears the patient may have been infected in the last 3 to 5 days. Unclear if patient will decompensate moving forward. Patient is being seen by infectious disease, but is currently tolerating room air. Would monitor clinically from a pulmonary perspective. If patient develops hypoxia, please notify the pulmonary service. Otherwise, will follow peripherally and sign off from a pulmonary perspective. Anticipate worst respiratory symptoms between 10 and 14 days. 2. Ataxia secondary to acute CVA of the nikki, brainstem and right occipital lobe Patient currently undergoing a stroke work-up by hospitalist. Patient does have significant deficits noted with ataxia. 3. Hypertension/diabetes mellitus/morbid obesity Complicates care, management, recovery and prognosis. Blood pressure appears to be adequate at this time. Will need to watch blood sugars closely given initiation of Decadron by infectious disease. Inpatient E&M: 02223 Init Hosp L2
[2020-05-04] MEDS: Clopidogrel Bisulfate 75 MG Tablet PO (18:11)
[2020-05-04] MEDS: dexAMETHasone 4 MG Tablet 6 MG PO (18:11)
[2020-05-04 18:26] LABS: Bedside Glucose 153 mg/dL (70-110)
[2020-05-04] MEDS: Atorvastatin Calcium 80 MG Tablet PO (21:46)
[2020-05-04] MEDS: Famotidine 20 MG Tablet PO (21:46)
[2020-05-04 21:55] LABS: Bedside Glucose 248 mg/dL (70-110)
--- NOTE | 2020-05-04 22:06 | NURSING ---
NIHSS assessment performed and VS obtained at 2138, which was late d/t emergency situation with another patient. Pt's NIH and VS stable and performed without any issues. LINDY Baez.
[2020-05-05] VITALS (13 sets, daily range): BP systolic 121–155; BP diastolic 64–73; PULSE 72–89; RESP 16–20; TEMP 35.9–36.3; O2SAT 88–95; BMI 40.5
[2020-05-05 06:55] LABS: Hematocrit 46.7 % (40-54); Hemoglobin 15.1 g/dL (13.0-16.5); Mean Corp Hgb Conc 32.3 g/dL (32-36); Mean Corpuscular Hgb 28.9 pg (27.0-32.0); Mean Corpuscular Volume 89.3 fL (80-94); Mean Platelet Vol. 10.7 fl (6.2-12.0); Platelet Count 155 K/mm3 (150-450); RBC Distribution Width CV 12.4 % (11.6-14.6); RBC Distribution Width SD 41.1 fl (35.1-43.9); Red Blood Count 5.23 M/mm3 (4.6-6.2); White Blood Count 2.9 K/mm3 (4.4-11.0)
[2020-05-05 07:06] LABS: Bedside Glucose 304 mg/dL (70-110)
[2020-05-05 07:25] LABS: ALB/GLOB Ratio 0.6 RATIO (0.9-2.4); AST(SGOT) 80 U/L (15-37); Alanine Aminotransfer ALT/SGPT 77 U/L (16-61); Albumin, Serum 2.8 g/dL (3.2-5.0); Alkaline Phosphatase 60 U/L (45-117); Anion Gap 11 (5-15); BUN 12 mg/dL (7-18); BUN/Creat Ratio 13.7 RATIO (10-20); Calcium,Total 7.8 mg/dL (8.5-10.1); Chloride 100 mmol/L (98-107); Cholesterol 119 mg/dL (200); Creatinine, Serum 0.87 mg/dL (0.70-1.30); EST Glomerular Filtration Rate 93 mL/min (>60); Est Glom Filt Rate - Afr Amer 112 mL/min (>60); Estimated Creatinine Clearance 79.71 ml/min; Globulin 4.6 g/dL (2.2-4.2); Glucose 254 mg/dL (74-106); High Density Lipoprotein 31 mg/dL; Potassium 3.9 mmol/L (3.5-5.1); Protein, Total 7.4 g/dL (6.4-8.2); Sodium Level 136 mmol/L (136-145); Triglycerides 80 mg/dL; Very Low Density Lipoprotein 16 mg/dL (5-40)
[2020-05-05] MEDS: Aspirin E.C. 81 MG Tablet PO (09:36)
[2020-05-05] MEDS: dexAMETHasone 4 MG Tablet 6 MG PO (09:36)
[2020-05-05] MEDS: Enoxaparin 40 MG/0.4 ML Syringe SC ×2 (09:37→20:30)
[2020-05-05] MEDS: Famotidine 20 MG Tablet PO ×2 (09:38→20:30)
[2020-05-05] MEDS: Clopidogrel Bisulfate 75 MG Tablet PO (09:38)
--- NOTE | 2020-05-05 11:14 | PN_ITS ---
Patient Problems: Active and Suspected Problems (Last Updated 05/04/20 @ 01:[address] Jethro López MD) Ataxia (Acute) COVID-19 virus infection (Acute) Acute CVA (cerebrovascular accident) (Acute) Reason for Visit: Follow-up on acute CVA/ hypoxia/Acute COVID-19 infection Subjective: Patient was seen and examined. He denied any new complains. He has increased oxygen requirement. Currently on 2L oxygen. Denies fever or chills. Vitals/I&O's: Vital Signs Temp Pulse Resp BP Pulse Ox 96.7 F L 76 18 136/66 H 94 05/05/20 08:35 05/05/20 08:35 05/05/20 08:35 05/05/20 08:35 05/05/20 08:35 Oxygen Flow Rate (L/min) 2 Oxygen Delivery Method Nasal Cannula Weight: 121 kg Body Mass Index (BMI) 40.5 Intake and Output for Last 24 Hours 05/03/20 05/04/20 05/05/20 23:59 23:59 23:59 Intake Total 500 / 500 1237 / 1357 320 / 320 Output Total 400 / 400 Balance 500 / 500 837 / 957 320 / 320 General: Alert, Oriented x3, Cooperative, No apparent distress, - - on 2L oxygen, morbidly obese HEENT: Atraumatic, PERRLA, EOMI, Normocephalic Neck: Supple Lungs: Clear to auscultation, Normal air movement Cardiovascular: Regular rate, Regular Rhythm, Normal S1, Normal S2, No murmurs Abdomen: Bowel Sounds Present, Soft, Non Tender, Non-Distended, No Hepato- splenomegaly Extremities: No edema Skin: No rashes Musculoskeletal: No Tenderness to Palpation of Joints or Extremities Lymphatic: No Cervical, Supraclavicular, or Inguinal Adenopathy - except for left peripheral field neglect Neurological: Neuro grossly intact Psych/Mental Status: Normal Affect, Appropriate Microbiology Past 72 Hours 05/03/20 22:22 Urine Catheter - Catheter Urine Culture - Preliminary Mixed Gram Positive Organisms 05/03/20 22:22 Urine, Clean Catch Legionella Antigen - Final 05/03/20 22:22 Urine, Clean Catch Streptococcus pneumoniae Antigen (M - Final Laboratory Results 05/04/20 05:20: Hemoglobin A1c 10.2 H 05/04/20 13:28: POC Glucose 170 H 05/04/20 18:19: POC Glucose 153 H 05/04/20 21:38: POC Glucose 248 H 05/05/20 06:18: Sodium 136, Potassium 3.9, Chloride 100, Carbon Dioxide 25.0, Anion Gap 11, BUN 12, Creatinine 0.87, Estim Creat Clear Calc 79.71, Est GFR (MDRD) Af Amer 112, Est GFR (MDRD) Non-Af 93, BUN/Creatinine Ratio 13.7, Glucose 254 H, Calcium 7.8 L, Total Bilirubin 0.80, AST 80 H, ALT 77 H, Alkaline Phosphatase 60, Total Protein 7.4, Albumin 2.8 L, Globulin 4.6 H, Albumin/Globulin Ratio 0.6 L, Triglycerides 80, Cholesterol 119, LDL Cholesterol 72, VLDL Cholesterol 16, HDL Cholesterol 31 L 05/05/20 06:18: WBC 2.9 L, RBC 5.23, Hgb 15.1, Hct 46.7, MCV 89.3, MCH 28.9, MCHC 32.3, RDW Std Deviation 41.1, RDW Coeff of Neil 12.4, Plt Count 155, MPV 10.7 05/05/20 06:58: POC Glucose 304 H Current Medications Acetaminophen (Acetaminophen 325 Mg Tablet) 650 mg PO Q6H PRN PRN PRN Reason: Pain Score 1-10/Temp > 100.7 F Last Admin: 05/04/20 10:12 Dose: 650 mg Documented by: Aspirin (Aspirin E.C. 81 Mg Tablet) 81 mg PO DAILY [facility] Last Admin: 05/05/20 09:36 Dose: 81 mg Documented by: Atorvastatin Calcium (Atorvastatin Calcium 80 Mg Tablet) 80 mg PO QHS [facility] Last Admin: 05/04/20 21:46 Dose: 80 mg Documented by: Clopidogrel Bisulfate (Clopidogrel Bisulfate 75 Mg Tablet) 75 mg PO DAILY [facility] Last Admin: 05/05/20 09:38 Dose: 75 mg Documented by: Dexamethasone (Dexamethasone 4 Mg Tablet) 6 mg PO DAILY@0800 [facility] Stop: 05/13/20 08:01 Last Admin: 05/05/20 09:36 Dose: 6 mg Documented by: Dextrose (Dextrose 50%-Water 25 Gm/50 Ml Disp.Syrin) 0 gm IV X1 PRN; Protocol PRN Reason: Hypoglycemia Enoxaparin Sodium (Enoxaparin 40 Mg/0.4 Ml Syringe) 40 mg SC BID [facility] Last Admin: 05/05/20 09:37 Dose: 40 mg Documented by: Famotidine (Famotidine 20 Mg Tablet) 20 mg PO BID [facility] Last Admin: 05/05/20 09:38 Dose: 20 mg Documented by: Glucagon (Glucagon 1 Mg/Ml Syringe) 1 mg IM .X1 PRN PRN Reason: Hypoglycemia Remdesivir (Investigational) (100 mg/ Sodium Chloride) 250 mls @ 125 mls/hr IV DAILY [facility]; Protocol Stop: 05/08/20 11:59 Last Admin: 05/05/20 10:16 Dose: 125 mls/hr Documented by: Insulin Glargine (Insulin Glargine 100 Units/Ml Pen) 10 units SC BID [facility] Last Admin: 05/05/20 09:37 Dose: 10 units Documented by: Labetalol HCl (Labetalol (Prefilled) 20 Mg/4 Ml) 10 mg IV Q4 PRN PRN Reason: SBP > 220 OR DBP > 120 Melatonin (Melatonin 3 Mg Tablet) 3 mg PO QHS PRN PRN PRN Reason: INSOMNIA Nutritional Formula (Lactose Free) (Glucerna Shake 120 Ml Liquid) 120 ml PO 4X/DAY [facility] Last Admin: 05/05/20 09:49 Dose: Not Given Documented by: Ondansetron HCl (Ondansetron 4 Mg/2 Ml Vial) 4 mg IV Q8H PRN PRN PRN Reason: NAUSEA/VOMITING Sodium Chloride (0.9% Saline Lock 10 Ml Syringe) 10 - 40 ml IV UD PRN PRN Reason: SALINE FLUSH STROKE Vital Signs/Narrative: Vital Signs Temp Pulse Resp BP Pulse Ox 05/05/20 08:35 96.7 F L 76 18 136/66 H 94 05/05/20 08:17 93 Medical Necessity - Tobacco Use Smoking Status: Never smoker Tobacco Use: Non-smoker Assessment/Plan All Active Problems (Last Updated 05/04/20 @ 01:[address] Jethro López MD) Ataxia (Acute) COVID-19 virus infection (Acute) Acute CVA (cerebrovascular accident) (Acute) 1. 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 Trig 80, T chol 119, LDL 72 PT/OT/ST to evaluate 2. Acute hypoxic respiratory insufficiency secondary to Acute COVID-19 infection Currently on 2L oxygen Will continue to wean off, encourage IS 3. Acute COVID-19 infection/pneumonia On dexamethasone and remdesivir ID following 4. Hypertension, slightly uncontrolled, will resume atenolol and Lisinopril Continue to monitor 5. Type 2 DM, HbA1c 10.2, started on Lantus BS uncontrolled, will increase Lantus 6. Morbid obesity, BMI 40.6, continue on lifestyle modification 7. DVT PPx- Lovenox SC BID Inpatient E&M: 20357 Subs Hosp L2
--- NOTE | 2020-05-05 11:34 | CASEMGMT ---
Patient has COVID and he had a Stroke. SW called patient's room to do the PHQ9, however he did not answer. SW will try again later. Dorcas MUKHERJEE MSW
--- NOTE | 2020-05-05 11:46 | PN.ID_ITS ---
Patient Problems: Active and Suspected Problems (Last Updated 05/04/20 @ 01:[address] Jethro López MD) Ataxia (Acute) COVID-19 virus infection (Acute) Acute CVA (cerebrovascular accident) (Acute) Subjective: Feeling ok, now on O2, denies fever or cough. - Physical Exam Vitals/I&O's: Vital Signs Temp Pulse Resp BP Pulse Ox 96.7 F L 76 18 136/66 H 94 05/05/20 08:35 05/05/20 08:35 05/05/20 08:35 05/05/20 08:35 05/05/20 08:35 Oxygen Flow Rate (L/min) 2 Oxygen Delivery Method Nasal Cannula Weight: 121 kg Body Mass Index (BMI) 40.5 Intake and Output for Last 24 Hours 05/03/20 05/04/20 05/05/20 23:59 23:59 23:59 Intake Total 500 / 500 1237 / 1357 320 / 320 Output Total 400 / 400 Balance 500 / 500 837 / 957 320 / 320 General: Alert, Cooperative, No apparent distress Lungs: Diminished Cardiovascular: Regular rate, Regular Rhythm Abdomen: Soft, Non Tender, Non-Distended Skin: No rashes Microbiology Past 72 Hours 05/03/20 22:22 Urine Catheter - Catheter Urine Culture - Preliminary Mixed Gram Positive Organisms 05/03/20 22:22 Urine, Clean Catch Legionella Antigen - Final 05/03/20 22:22 Urine, Clean Catch Streptococcus pneumoniae Antigen (M - Final Laboratory Results 05/04/20 05:20: Hemoglobin A1c 10.2 H 05/04/20 13:28: POC Glucose 170 H 05/04/20 18:19: POC Glucose 153 H 05/04/20 21:38: POC Glucose 248 H 05/05/20 06:18: Sodium 136, Potassium 3.9, Chloride 100, Carbon Dioxide 25.0, Anion Gap 11, BUN 12, Creatinine 0.87, Estim Creat Clear Calc 79.71, Est GFR (MDRD) Af Amer 112, Est GFR (MDRD) Non-Af 93, BUN/Creatinine Ratio 13.7, Glucose 254 H, Calcium 7.8 L, Total Bilirubin 0.80, AST 80 H, ALT 77 H, Alkaline Phosphatase 60, Total Protein 7.4, Albumin 2.8 L, Globulin 4.6 H, Albumin/Globulin Ratio 0.6 L, Triglycerides 80, Cholesterol 119, LDL Cholesterol 72, VLDL Cholesterol 16, HDL Cholesterol 31 L 05/05/20 06:18: WBC 2.9 L, RBC 5.23, Hgb 15.1, Hct 46.7, MCV 89.3, MCH 28.9, MCHC 32.3, RDW Std Deviation 41.1, RDW Coeff of Neil 12.4, Plt Count 155, MPV 10.7 05/05/20 06:58: POC Glucose 304 H 05/05/20 10:35: Blood Type Pending Current Medications Acetaminophen (Acetaminophen 325 Mg Tablet) 650 mg PO Q6H PRN PRN PRN Reason: Pain Score 1-10/Temp > 100.7 F Last Admin: 05/04/20 10:12 Dose: 650 mg Documented by: Aspirin (Aspirin E.C. 81 Mg Tablet) 81 mg PO DAILY [facility] Last Admin: 05/05/20 09:36 Dose: 81 mg Documented by: Atorvastatin Calcium (Atorvastatin Calcium 80 Mg Tablet) 80 mg PO QHS [facility] Last Admin: 05/04/20 21:46 Dose: 80 mg Documented by: Clopidogrel Bisulfate (Clopidogrel Bisulfate 75 Mg Tablet) 75 mg PO DAILY [facility] Last Admin: 05/05/20 09:38 Dose: 75 mg Documented by: Dexamethasone (Dexamethasone 4 Mg Tablet) 6 mg PO DAILY@0800 [facility] Stop: 05/13/20 08:01 Last Admin: 05/05/20 09:36 Dose: 6 mg Documented by: Dextrose (Dextrose 50%-Water 25 Gm/50 Ml Disp.Syrin) 0 gm IV X1 PRN; Protocol PRN Reason: Hypoglycemia Enoxaparin Sodium (Enoxaparin 40 Mg/0.4 Ml Syringe) 40 mg SC BID [facility] Last Admin: 05/05/20 09:37 Dose: 40 mg Documented by: Famotidine (Famotidine 20 Mg Tablet) 20 mg PO BID [facility] Last Admin: 05/05/20 09:38 Dose: 20 mg Documented by: Glucagon (Glucagon 1 Mg/Ml Syringe) 1 mg IM .X1 PRN PRN Reason: Hypoglycemia Remdesivir (Investigational) (100 mg/ Sodium Chloride) 250 mls @ 125 mls/hr IV DAILY [facility]; Protocol Stop: 05/08/20 11:59 Last Admin: 05/05/20 10:16 Dose: 125 mls/hr Documented by: Insulin Glargine (Insulin Glargine 100 Units/Ml Pen) 10 units SC BID [facility] Last Admin: 05/05/20 09:37 Dose: 10 units Documented by: Labetalol HCl (Labetalol (Prefilled) 20 Mg/4 Ml) 10 mg IV Q4 PRN PRN Reason: SBP > 220 OR DBP > 120 Melatonin (Melatonin 3 Mg Tablet) 3 mg PO QHS PRN PRN PRN Reason: INSOMNIA Nutritional Formula (Lactose Free) (Glucerna Shake 120 Ml Liquid) 120 ml PO 4X/DAY [facility] Last Admin: 05/05/20 09:49 Dose: Not Given Documented by: Ondansetron HCl (Ondansetron 4 Mg/2 Ml Vial) 4 mg IV Q8H PRN PRN PRN Reason: NAUSEA/VOMITING Sodium Chloride (0.9% Saline Lock 10 Ml Syringe) 10 - 40 ml IV UD PRN PRN Reason: SALINE FLUSH Medical Necessity - Tobacco Use Smoking Status: Never smoker Tobacco Use: Non-smoker Route of nutrition/ use of supplements: [] Nutritional Intake: [] IV Site: [] Weeks Catheter: [] - Assessment/Plan Antibiotics: [] Assessment/Plan: [] Active and Suspected Problems (Last Updated 05/04/20 @ 01:[address] Jethro López MD) Ataxia (Acute) COVID-19 virus infection (Acute) covid with hypoxia and brainstem stroke - neuro consulted. Sat 92% on RA on admit with recent onset of symptoms, treating with dex and remdesivir. Now on 2L. Will follow
[2020-05-05 12:20] LABS: Bedside Glucose 281 mg/dL (70-110)
--- NOTE | 2020-05-05 13:41 | CASEMGMT ---
SW attempted to reach patient again via phone to complete PHQ 9, however he did not answer. KARISSA will continue to try. Dorcas MUKHERJEE MSW
[2020-05-05] MEDS: Insulin Lispro 100 UNIT/ML INSULN.PEN SC ×2 (16:29→20:30)
[2020-05-05 16:45] LABS: Bedside Glucose 414 mg/dL (70-110)
[2020-05-05] MEDS: Atorvastatin Calcium 80 MG Tablet PO (20:30)
[2020-05-05 20:45] LABS: Bedside Glucose 415 mg/dL (70-110)
[2020-05-06] VITALS (13 sets, daily range): BP systolic 123–153; BP diastolic 55–88; PULSE 56–84; RESP 16–18; TEMP 35.9–36.4; O2SAT 93–96; BMI 40.5
[2020-05-06 06:21] LABS: Hemoglobin 14.3 g/dL (13.0-16.5); Mean Corp Hgb Conc 33.3 g/dL (32-36); Mean Corpuscular Hgb 29.1 pg (27.0-32.0); Mean Corpuscular Volume 87.4 fL (80-94); Mean Platelet Vol. 10.4 fl (6.2-12.0); Platelet Count 174 K/mm3 (150-450); RBC Distribution Width CV 12.6 % (11.6-14.6); RBC Distribution Width SD 40.4 fl (35.1-43.9); Red Blood Count 4.92 M/mm3 (4.6-6.2); White Blood Count 3.9 K/mm3 (4.4-11.0)
[2020-05-06] MEDS: Insulin Lispro 100 UNIT/ML INSULN.PEN SC ×4 (06:40→21:31)
[2020-05-06 06:45] LABS: ALB/GLOB Ratio 0.8 RATIO (0.9-2.4); AST(SGOT) 48 U/L (15-37); Alanine Aminotransfer ALT/SGPT 57 U/L (16-61); Albumin, Serum 2.7 g/dL (3.2-5.0); Alkaline Phosphatase 61 U/L (45-117); Anion Gap 11 (5-15); BUN 19 mg/dL (7-18); BUN/Creat Ratio 24.1 RATIO (10-20); Calcium,Total 7.9 mg/dL (8.5-10.1); Chloride 104 mmol/L (98-107); Creatinine, Serum 0.79 mg/dL (0.70-1.30); EST Glomerular Filtration Rate 104 mL/min (>60); Est Glom Filt Rate - Afr Amer 126 mL/min (>60); Estimated Creatinine Clearance 69.35 ml/min; Globulin 3.6 g/dL (2.2-4.2); Glucose 331 mg/dL (74-106); Potassium 3.9 mmol/L (3.5-5.1); Protein, Total 6.3 g/dL (6.4-8.2); Sodium Level 138 mmol/L (136-145)
[2020-05-06 06:51] LABS: Bedside Glucose 342 mg/dL (70-110)
--- NOTE | 2020-05-06 07:48 | PCM.PN.HOSP ---
Patient Problems: Active and Suspected Problems (Last Updated 05/04/20 @ 01:[address] Jethro López MD) Ataxia (Acute) COVID-19 virus infection (Acute) Acute CVA (cerebrovascular accident) (Acute) Reason for Visit: Follow-up on acute CVA/ hypoxia/Acute COVID-19 infection Subjective: Patient was seen and examined. He is really SOB with exertion. Denies fever or chills. Objective: Physical exam: General: Alert, Oriented x3, Cooperative, No apparent distress, - - on 2L oxygen, morbidly obese HEENT: Atraumatic, PERRLA, EOMI, Normocephalic Neck: Supple Lungs: Clear to auscultation, Normal air movement Cardiovascular: Regular rate, Regular Rhythm, Normal S1, Normal S2, No murmurs Abdomen: Bowel Sounds Present, Soft, Non Tender, Non-Distended, No Hepato-splenomegaly Extremities: No edema Skin: No rashes Musculoskeletal: No Tenderness to Palpation of Joints or Extremities Lymphatic: No Cervical, Supraclavicular, or Inguinal Adenopathy - except for left peripheral field neglect Neurological: Neuro grossly intact Psych/Mental Status: Normal Affect, Appropriate Vitals/I&O's: Vital Signs Temp Pulse Resp BP Pulse Ox 97.2 F L 71 18 143/55 H 93 05/06/20 06:36 05/06/20 07:02 05/06/20 06:36 05/06/20 06:36 05/06/20 06:36 Oxygen Flow Rate (L/min) 2 Oxygen Delivery Method Nasal Cannula Weight: 121 kg Body Mass Index (BMI) 40.5 Intake and Output for Last 24 Hours 05/04/20 05/05/20 05/06/20 23:59 23:59 23:59 Intake Total 1237 / 1357 1005 / 1005 100 / 100 Output Total 400 / 400 700 / 700 350 / 350 Balance 837 / 957 305 / 305 -250 / -250 Microbiology Past 72 Hours 05/03/20 22:22 Urine Catheter - Catheter Urine Culture - Preliminary Mixed Gram Positive Organisms 05/03/20 22:22 Urine, Clean Catch Legionella Antigen - Final 05/03/20 22:22 Urine, Clean Catch Streptococcus pneumoniae Antigen (M - Final Laboratory Results 05/05/20 10:35: Blood Type A POSITIVE 05/05/20 12:02: POC Glucose 281 H 05/05/20 16:20: POC Glucose 414 H 05/05/20 20:27: POC Glucose 415 H 05/06/20 06:04: WBC 3.9 L, RBC 4.92, Hgb 14.3, Hct 43.0, MCV 87.4, MCH 29.1, MCHC 33.3, RDW Std Deviation 40.4, RDW Coeff of Neil 12.6, Plt Count 174, MPV 10.4 05/06/20 06:04: Sodium 138, Potassium 3.9, Chloride 104, Carbon Dioxide 23.0, Anion Gap 11, BUN 19 H, Creatinine 0.79, Estim Creat Clear Calc 69.35, Est GFR (MDRD) Af Amer 126, Est GFR (MDRD) Non-Af 104, BUN/Creatinine Ratio 24.1 H, Glucose 331 H, Calcium 7.9 L, Total Bilirubin 0.60, AST 48 H, ALT 57, Alkaline Phosphatase 61, Total Protein 6.3 L, Albumin 2.7 L, Globulin 3.6, Albumin/Globulin Ratio 0.8 L 05/06/20 06:38: POC Glucose 342 H Current Medications Acetaminophen (Acetaminophen 325 Mg Tablet) 650 mg PO Q6H PRN PRN PRN Reason: Pain Score 1-10/Temp > 100.7 F Last Admin: 05/04/20 10:12 Dose: 650 mg Documented by: Aspirin (Aspirin E.C. 81 Mg Tablet) 81 mg PO DAILY [facility] Last Admin: 05/05/20 09:36 Dose: 81 mg Documented by: Atenolol (Atenolol 25 Mg Tablet) 25 mg PO DAILY [facility] Atorvastatin Calcium (Atorvastatin Calcium 80 Mg Tablet) 80 mg PO QHS [facility] Last Admin: 05/05/20 20:30 Dose: 80 mg Documented by: Clopidogrel Bisulfate (Clopidogrel Bisulfate 75 Mg Tablet) 75 mg PO DAILY [facility] Last Admin: 05/05/20 09:38 Dose: 75 mg Documented by: Dexamethasone (Dexamethasone 4 Mg Tablet) 6 mg PO DAILY@0800 [facility] Stop: 05/13/20 08:01 Last Admin: 05/05/20 09:36 Dose: 6 mg Documented by: Dextrose (Dextrose 50%-Water 25 Gm/50 Ml Disp.Syrin) 0 gm IV X1 PRN; Protocol PRN Reason: Hypoglycemia Dextrose (Dextrose 50%-Water 25 Gm/50 Ml Disp.Syrin) 0 gm IV X1 PRN; Protocol PRN Reason: Hypoglycemia Enoxaparin Sodium (Enoxaparin 40 Mg/0.4 Ml Syringe) 40 mg SC BID [facility] Last Admin: 05/05/20 20:30 Dose: 40 mg Documented by: Famotidine (Famotidine 20 Mg Tablet) 20 mg PO BID [facility] Last Admin: 05/05/20 20:30 Dose: 20 mg Documented by: Glucagon (Glucagon 1 Mg/Ml Syringe) 1 mg IM .X1 PRN PRN Reason: Hypoglycemia Glucagon (Glucagon 1 Mg/Ml Syringe) 1 mg IM .X1 PRN PRN Reason: Hypoglycemia Remdesivir (Investigational) (100 mg/ Sodium Chloride) 250 mls @ 125 mls/hr IV DAILY [facility]; Protocol Stop: 05/08/20 11:59 Last Infusion: 05/05/20 12:38 Dose: Infused Documented by: Insulin Glargine (Insulin Glargine 100 Units/Ml Pen) 20 units SC BID [facility] Last Admin: 05/05/20 20:31 Dose: 20 u Documented by: Insulin Human Lispro (Insulin Lispro 100 Unit/Ml Insuln.Pen) 0 unit SC ACHS [facility]; Protocol Last Admin: 05/06/20 06:40 Dose: 3 units Documented by: Labetalol HCl (Labetalol (Prefilled) 20 Mg/4 Ml) 10 mg IV Q4 PRN PRN Reason: SBP > 220 OR DBP > 120 Lisinopril (Lisinopril 10 Mg Tablet) 30 mg PO DAILY [facility] Melatonin (Melatonin 3 Mg Tablet) 3 mg PO QHS PRN PRN PRN Reason: INSOMNIA Nutritional Formula (Lactose Free) (Glucerna Shake 120 Ml Liquid) 120 ml PO 4X/DAY [facility] Last Admin: 05/05/20 20:31 Dose: Not Given Documented by: Ondansetron HCl (Ondansetron 4 Mg/2 Ml Vial) 4 mg IV Q8H PRN PRN PRN Reason: NAUSEA/VOMITING Sodium Chloride (0.9% Saline Lock 10 Ml Syringe) 10 - 40 ml IV UD PRN PRN Reason: SALINE FLUSH STROKE Vital Signs/Narrative: Vital Signs Temp Pulse Resp BP Pulse Ox 05/06/20 07:02 71 05/06/20 06:36 97.2 F L 69 18 143/55 H 93 Medical Necessity - Tobacco Use Smoking Status: Never smoker Tobacco Use: Non-smoker Assessment/Plan All Active Problems (Last Updated 05/04/20 @ 01:[address] Jethro López MD) Ataxia (Acute) COVID-19 virus infection (Acute) Acute CVA (cerebrovascular accident) (Acute) 1. 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 Trig 80, T chol 119, LDL 72 PT/OT/ST to evaluate 2. Acute hypoxic respiratory insufficiency secondary to Acute COVID-19 infection Currently on 2L oxygen Will continue to wean off, encourage IS 3. Acute COVID-19 infection/pneumonia On dexamethasone and remdesivir ID following 4. Hypertension, slightly uncontrolled, will resume atenolol and Lisinopril Continue to monitor 5. Type 2 DM, HbA1c 10.2, started on Lantus BS uncontrolled, will increase Lantus to 40 units BID 6. Morbid obesity, BMI 40.6, continue on lifestyle modification 7. DVT PPx- Lovenox SC BID Inpatient E&M: 21312 Subs Hosp L2
[2020-05-06] MEDS: dexAMETHasone 4 MG Tablet 6 MG PO (08:52)
[2020-05-06] MEDS: Enoxaparin 40 MG/0.4 ML Syringe SC ×2 (10:45→21:33)
[2020-05-06] MEDS: Famotidine 20 MG Tablet PO ×2 (10:45→21:33)
[2020-05-06] MEDS: Clopidogrel Bisulfate 75 MG Tablet PO (10:45)
[2020-05-06] MEDS: Aspirin E.C. 81 MG Tablet PO (10:46)
[2020-05-06] MEDS: Lisinopril 10 MG Tablet 30 MG PO (10:47)
[2020-05-06] MEDS: Atenolol 25 MG Tablet PO (10:47)
[2020-05-06 11:20] LABS: Bedside Glucose 406 mg/dL (70-110)
--- NOTE | 2020-05-06 12:47 | CASEMGMT ---
SW called patient in his room. SW introduced self and role at [facility]. Patient was in agreement with completing PHQ 9 due to having a Stroke. He scored a 2 which indicates minimal depression. Dorcas SIMPSON
--- NOTE | 2020-05-06 12:50 | CASEMGMT ---
SW spoke with patient and discussed whether or not he feels like he is strong enough to return home. He said hopefully he will be strong enough when he is ready for d/c. SW asked if he would be willing to go to a correction facility if he did not get strong enough. He said he was not sure. He said he knows when he gets home he needs to pay some bills. SW told him we will continue to follow. Dorcas MUKHERJEE MSW
--- NOTE | 2020-05-06 16:03 | CASEMGMT ---
Call to pt's room and pt declines need for HHC at discharge at this time. Pt states no preference for DME company as long as they(insurance) pay for it. Pt's sat dropped to 74% on 2liters today while 'marching' with therapy. [facility] is preferred provider for pt insurance at this time. Green sheet left on chart for home oxygen, if pt qualifies at discharge. This RN CM reminded pt that he needs to be in quarantine when discharged d/t COVID and that he will need someone to bring him supplies, pt voices understanding. Pt voices no further questions/concerns/needs at this time. [place] LINDY RABAGO
--- NOTE | 2020-05-06 16:12 | PN.ID_ITS ---
Patient Problems: Active and Suspected Problems (Last Updated 05/04/20 @ 01:[address] Jethro López MD) Ataxia (Acute) COVID-19 virus infection (Acute) Acute CVA (cerebrovascular accident) (Acute) Subjective: Feeling ok, breathing better, no fever - Physical Exam Vitals/I&O's: Vital Signs Temp Pulse Resp BP Pulse Ox 96.7 F L 56 L 18 134/61 H 94 05/06/20 14:01 05/06/20 14:47 05/06/20 14:01 05/06/20 14:01 05/06/20 14:01 Oxygen Flow Rate (L/min) 2 Oxygen Delivery Method Nasal Cannula Weight: 121 kg Body Mass Index (BMI) 40.5 Intake and Output for Last 24 Hours 05/04/20 05/05/20 05/06/20 23:59 23:59 23:59 Intake Total 1237 / 1357 1005 / 1005 590 / 590 Output Total 400 / 400 700 / 700 350 / 350 Balance 837 / 957 305 / 305 240 / 240 General: Alert, Cooperative, No apparent distress Lungs: Clear to auscultation, Diminished Cardiovascular: Regular rate, Regular Rhythm Abdomen: Soft, Non Tender, Non-Distended Skin: No rashes Microbiology Past 72 Hours 05/03/20 22:22 Urine Catheter - Catheter Urine Culture - Preliminary Streptococcus agalactiae (B) Alpha hemolytic organism Gram Positive Cocci 05/03/20 22:22 Urine, Clean Catch Legionella Antigen - Final 05/03/20 22:22 Urine, Clean Catch Streptococcus pneumoniae Antigen (M - Final Laboratory Results 05/05/20 16:20: POC Glucose 414 H 05/05/20 20:27: POC Glucose 415 H 05/06/20 06:04: WBC 3.9 L, RBC 4.92, Hgb 14.3, Hct 43.0, MCV 87.4, MCH 29.1, MCHC 33.3, RDW Std Deviation 40.4, RDW Coeff of Neil 12.6, Plt Count 174, MPV 10.4 05/06/20 06:04: Sodium 138, Potassium 3.9, Chloride 104, Carbon Dioxide 23.0, Anion Gap 11, BUN 19 H, Creatinine 0.79, Estim Creat Clear Calc 69.35, Est GFR (MDRD) Af Amer 126, Est GFR (MDRD) Non-Af 104, BUN/Creatinine Ratio 24.1 H, Glucose 331 H, Calcium 7.9 L, Total Bilirubin 0.60, AST 48 H, ALT 57, Alkaline Phosphatase 61, Total Protein 6.3 L, Albumin 2.7 L, Globulin 3.6, Albumin/Globulin Ratio 0.8 L 05/06/20 06:38: POC Glucose 342 H 05/06/20 11:09: POC Glucose 406 H Current Medications Acetaminophen (Acetaminophen 325 Mg Tablet) 650 mg PO Q6H PRN PRN PRN Reason: Pain Score 1-10/Temp > 100.7 F Last Admin: 05/04/20 10:12 Dose: 650 mg Documented by: Aspirin (Aspirin E.C. 81 Mg Tablet) 81 mg PO DAILY [facility] Last Admin: 05/06/20 10:46 Dose: 81 mg Documented by: Atenolol (Atenolol 25 Mg Tablet) 25 mg PO DAILY [facility] Last Admin: 05/06/20 10:47 Dose: 25 mg Documented by: Atorvastatin Calcium (Atorvastatin Calcium 80 Mg Tablet) 80 mg PO QHS [facility] Last Admin: 05/05/20 20:30 Dose: 80 mg Documented by: Clopidogrel Bisulfate (Clopidogrel Bisulfate 75 Mg Tablet) 75 mg PO DAILY [facility] Last Admin: 05/06/20 10:45 Dose: 75 mg Documented by: Dexamethasone (Dexamethasone 4 Mg Tablet) 6 mg PO DAILY@0800 [facility] Stop: 05/13/20 08:01 Last Admin: 05/06/20 08:52 Dose: 6 mg Documented by: Dextrose (Dextrose 50%-Water 25 Gm/50 Ml Disp.Syrin) 0 gm IV X1 PRN; Protocol PRN Reason: Hypoglycemia Dextrose (Dextrose 50%-Water 25 Gm/50 Ml Disp.Syrin) 0 gm IV X1 PRN; Protocol PRN Reason: Hypoglycemia Enoxaparin Sodium (Enoxaparin 40 Mg/0.4 Ml Syringe) 40 mg SC BID [facility] Last Admin: 05/06/20 10:45 Dose: 40 mg Documented by: Famotidine (Famotidine 20 Mg Tablet) 20 mg PO BID [facility] Last Admin: 05/06/20 10:45 Dose: 20 mg Documented by: Glucagon (Glucagon 1 Mg/Ml Syringe) 1 mg IM .X1 PRN PRN Reason: Hypoglycemia Glucagon (Glucagon 1 Mg/Ml Syringe) 1 mg IM .X1 PRN PRN Reason: Hypoglycemia Remdesivir (Investigational) (100 mg/ Sodium Chloride) 250 mls @ 125 mls/hr IV DAILY [facility]; Protocol Stop: 05/08/20 11:59 Last Infusion: 05/06/20 14:02 Dose: Infused Documented by: Insulin Glargine (Insulin Glargine 100 Units/Ml Pen) 30 units SC BID [facility] Last Admin: 05/06/20 10:46 Dose: 30 units Documented by: Insulin Human Lispro (Insulin Lispro 100 Unit/Ml Insuln.Pen) 0 unit SC ACHS [facility]; Protocol Last Admin: 05/06/20 11:10 Dose: 4 units Documented by: Labetalol HCl (Labetalol (Prefilled) 20 Mg/4 Ml) 10 mg IV Q4 PRN PRN Reason: SBP > 220 OR DBP > 120 Lisinopril (Lisinopril 10 Mg Tablet) 30 mg PO DAILY [facility] Last Admin: 05/06/20 10:47 Dose: 30 mg Documented by: Melatonin (Melatonin 3 Mg Tablet) 3 mg PO QHS PRN PRN PRN Reason: INSOMNIA Nutritional Formula (Lactose Free) (Glucerna Shake 120 Ml Liquid) 120 ml PO 4X/DAY [facility] Last Admin: 05/06/20 13:09 Dose: Not Given Documented by: Ondansetron HCl (Ondansetron 4 Mg/2 Ml Vial) 4 mg IV Q8H PRN PRN PRN Reason: NAUSEA/VOMITING Sodium Chloride (0.9% Saline Lock 10 Ml Syringe) 10 - 40 ml IV UD PRN PRN Reason: SALINE FLUSH Medical Necessity - Tobacco Use Smoking Status: Never smoker Tobacco Use: Non-smoker Route of nutrition/ use of supplements: [] Nutritional Intake: [] IV Site: [] Weeks Catheter: [] - Assessment/Plan Antibiotics: [] Assessment/Plan: [] Active and Suspected Problems (Last Updated 05/04/20 @ 01:[address] Jethro López MD) Ataxia (Acute) COVID-19 virus infection (Acute) covid with hypoxia and brainstem stroke - neuro consulted. Sat 92% on RA on admit with recent onset of symptoms, treating with dex and remdesivir. Now on 2L. Feeling better. Plan on completing 10 days total of dex at discharge. Will follow
[2020-05-06 17:11] LABS: Bedside Glucose 443 mg/dL (70-110)
[2020-05-06 17:19] LABS: Bacteria 0 SEEN /hpf (None Seen); Mucous, Urine 0 SEEN /hpf (<or=2+); Red Blood Cells-Urine 0 SEEN /hpf (0-5); Squamous Epithelial Cells - UA 0 SEEN /hpf (0-5); White Blood Cells 0 SEEN /hpf (0-5)
[2020-05-06 17:32] LABS: Color, Urine Yellow (Yellow); Glucose, Dipstick 1000 mg/dl (Normal); Ketone-Dipstick 5 mg/dl (Negative); Leukocyte Esterase-Dipstick Negative /ul (Negative); Nitrite-Dipstick Negative (Negative); Occult Blood-Urine Negative /ul (Negative); Protein-Dipstick 30 mg/dl (Negative); Urine Bilirubin Dipstick Negative (Negative); Urine Clarity Clear (Clear); Urine Urobilinogen 1 mg/dl (Normal); Urine pH 6.5 (5.0 - 8.0)
[2020-05-06] MEDS: Atorvastatin Calcium 80 MG Tablet PO (21:32)
[2020-05-06 21:51] LABS: Bedside Glucose 447 mg/dL (70-110)
[2020-05-07] VITALS (10 sets, daily range): BP systolic 117–159; BP diastolic 42–80; PULSE 54–68; RESP 20; TEMP 35.1–36.7; O2SAT 92–94; BMI 40.5
[2020-05-07] MEDS: Insulin Lispro 100 UNIT/ML INSULN.PEN SC ×4 (06:20→20:56)
[2020-05-07 06:26] LABS: Bedside Glucose 305 mg/dL (70-110)
[2020-05-07 08:02] LABS: Hematocrit 42.1 % (40-54); Hemoglobin 13.9 g/dL (13.0-16.5); Mean Corpuscular Hgb 29.4 pg (27.0-32.0); Mean Corpuscular Volume 89.2 fL (80-94); Mean Platelet Vol. 10.9 fl (6.2-12.0); Platelet Count 193 K/mm3 (150-450); RBC Distribution Width CV 12.6 % (11.6-14.6); RBC Distribution Width SD 41.4 fl (35.1-43.9); Red Blood Count 4.72 M/mm3 (4.6-6.2); White Blood Count 6.1 K/mm3 (4.4-11.0)
[2020-05-07 08:15] LABS: ALB/GLOB Ratio 0.6 RATIO (0.9-2.4); AST(SGOT) 40 U/L (15-37); Alanine Aminotransfer ALT/SGPT 48 U/L (16-61); Albumin, Serum 2.5 g/dL (3.2-5.0); Alkaline Phosphatase 64 U/L (45-117); Anion Gap 5 (5-15); BUN 18 mg/dL (7-18); BUN/Creat Ratio 23.9 RATIO (10-20); Calcium,Total 7.9 mg/dL (8.5-10.1); Chloride 105 mmol/L (98-107); Creatinine, Serum 0.75 mg/dL (0.70-1.30); EST Glomerular Filtration Rate 110 mL/min (>60); Est Glom Filt Rate - Afr Amer 133 mL/min (>60); Estimated Creatinine Clearance 69.35 ml/min; Globulin 3.9 g/dL (2.2-4.2); Glucose 323 mg/dL (74-106); Potassium 3.6 mmol/L (3.5-5.1); Protein, Total 6.4 g/dL (6.4-8.2); Sodium Level 138 mmol/L (136-145)
[2020-05-07] MEDS: Aspirin E.C. 81 MG Tablet PO (09:30)
[2020-05-07] MEDS: Clopidogrel Bisulfate 75 MG Tablet PO (09:30)
[2020-05-07] MEDS: Lisinopril 10 MG Tablet 30 MG PO (09:30)
[2020-05-07] MEDS: Atenolol 25 MG Tablet PO (09:30)
[2020-05-07] MEDS: Famotidine 20 MG Tablet PO ×2 (09:30→20:46)
[2020-05-07] MEDS: dexAMETHasone 4 MG Tablet 6 MG PO (09:31)
[2020-05-07] MEDS: Enoxaparin 40 MG/0.4 ML Syringe SC ×2 (09:31→20:45)
[2020-05-07] MEDS: Glucerna Shake 120 ML LIQUID PO ×3 (09:35→17:13)
[2020-05-07] MEDS: 0.9% Saline Lock 10 ML Syringe IV (11:19)
[2020-05-07 11:26] LABS: Bedside Glucose 353 mg/dL (70-110)
--- NOTE | 2020-05-07 15:58 | PCM.PN.HOSP ---
Patient Problems: Active and Suspected Problems (Last Updated 05/04/20 @ 01:[address] Jethro López MD) Ataxia (Acute) COVID-19 virus infection (Acute) Acute CVA (cerebrovascular accident) (Acute) Reason for Visit: Follow-up on acute CVA/ hypoxia/Acute COVID-19 infection Subjective: Patient was seen and examined. Denied any new complaints. He stated that he would not be able to give himself insulin. Nursing had reported that patient reports inability to comply with education and medication compliance. He stated that he is not going to take the medications when he gets home. I discussed his overall health status and stressed on compliance with medications. Objective: Physical exam: General: Alert, Oriented x3, Cooperative, No apparent distress, - - on 2L oxygen, morbidly obese HEENT: Atraumatic, PERRLA, EOMI, Normocephalic Neck: Supple Lungs: Clear to auscultation, Normal air movement Cardiovascular: Regular rate, Regular Rhythm, Normal S1, Normal S2, No murmurs Abdomen: Bowel Sounds Present, Soft, Non Tender, Non-Distended, No Hepato-splenomegaly Extremities: No edema Skin: No rashes Musculoskeletal: No Tenderness to Palpation of Joints or Extremities Lymphatic: No Cervical, Supraclavicular, or Inguinal Adenopathy - except for left peripheral field neglect Neurological: Neuro grossly intact Psych/Mental Status: Normal Affect, Appropriate Vitals/I&O's: Vital Signs Temp Pulse Resp BP Pulse Ox 95.2 F L 60 20 H 146/56 H 94 05/07/20 13:40 05/07/20 13:40 05/07/20 13:40 05/07/20 13:40 05/07/20 13:40 Oxygen Flow Rate (L/min) 2 Oxygen Delivery Method Room Air Weight: 121 kg Body Mass Index (BMI) 40.5 Intake and Output for Last 24 Hours 05/05/20 05/06/20 05/07/20 23:59 23:59 23:59 Intake Total 1005 / 1005 1530 / 1530 970 / 970 Output Total 700 / 700 1150 / 1150 Balance 305 / 305 380 / 380 970 / 970 Microbiology Past 72 Hours 05/06/20 16:55 Urine, Catheterized Urine Culture - Preliminary Culture exhibits no growth. 05/03/20 22:22 Urine Catheter - Catheter Urine Culture - Preliminary Streptococcus agalactiae (B) Alpha hemolytic organism Staphylococcus epidermidis Laboratory Results 05/06/20 16:46: POC Glucose 443 H 05/06/20 16:55: Urine Color Yellow, Urine Clarity Clear, Urine pH 6.5, Ur Specific Weld 1.010, Urine Protein 30 H, Urine Glucose (UA) 1000 H, Urine Ketones 5 H, Urine Occult Blood Negative, Urine Nitrite Negative, Urine Bilirubin Negative, Urine Urobilinogen 1 H, Ur Leukocyte Esterase Negative, Urine RBC 0 SEEN, Urine WBC 0 SEEN, Ur Squamous Epith Cells 0 SEEN, Urine Bacteria 0 SEEN, Urine Mucus 0 SEEN 05/06/20 21:30: POC Glucose 447 H 05/07/20 06:19: POC Glucose 305 H 05/07/20 06:45: WBC 6.1, RBC 4.72, Hgb 13.9, Hct 42.1, MCV 89.2, MCH 29.4, MCHC 33.0, RDW Std Deviation 41.4, RDW Coeff of Neil 12.6, Plt Count 193, MPV 10.9 05/07/20 06:45: Sodium 138, Potassium 3.6, Chloride 105, Carbon Dioxide 28.0, Anion Gap 5, BUN 18, Creatinine 0.75, Estim Creat Clear Calc 69.35, Est GFR (MDRD) Af Amer 133, Est GFR (MDRD) Non-Af 110, BUN/Creatinine Ratio 23.9 H, Glucose 323 H, Calcium 7.9 L, Total Bilirubin 0.50, AST 40 H, ALT 48, Alkaline Phosphatase 64, Total Protein 6.4, Albumin 2.5 L, Globulin 3.9, Albumin/Globulin Ratio 0.6 L 05/07/20 11:15: POC Glucose 353 H Current Medications Acetaminophen (Acetaminophen 325 Mg Tablet) 650 mg PO Q6H PRN PRN PRN Reason: Pain Score 1-10/Temp > 100.7 F Last Admin: 05/04/20 10:12 Dose: 650 mg Documented by: Aspirin (Aspirin E.C. 81 Mg Tablet) 81 mg PO DAILY [facility] Last Admin: 05/07/20 09:30 Dose: 81 mg Documented by: Atenolol (Atenolol 25 Mg Tablet) 25 mg PO DAILY [facility] Last Admin: 05/07/20 09:30 Dose: 25 mg Documented by: Atorvastatin Calcium (Atorvastatin Calcium 80 Mg Tablet) 80 mg PO QHS [facility] Last Admin: 05/06/20 21:32 Dose: 80 mg Documented by: Clopidogrel Bisulfate (Clopidogrel Bisulfate 75 Mg Tablet) 75 mg PO DAILY [facility] Last Admin: 05/07/20 09:30 Dose: 75 mg Documented by: Dexamethasone (Dexamethasone 4 Mg Tablet) 6 mg PO DAILY@0800 [facility] Stop: 05/13/20 08:01 Last Admin: 05/07/20 09:31 Dose: 6 mg Documented by: Dextrose (Dextrose 50%-Water 25 Gm/50 Ml Disp.Syrin) 0 gm IV X1 PRN; Protocol PRN Reason: Hypoglycemia Dextrose (Dextrose 50%-Water 25 Gm/50 Ml Disp.Syrin) 0 gm IV X1 PRN; Protocol PRN Reason: Hypoglycemia Enoxaparin Sodium (Enoxaparin 40 Mg/0.4 Ml Syringe) 40 mg SC BID [facility] Last Admin: 05/07/20 09:31 Dose: 40 mg Documented by: Famotidine (Famotidine 20 Mg Tablet) 20 mg PO BID [facility] Last Admin: 05/07/20 09:30 Dose: 20 mg Documented by: Glucagon (Glucagon 1 Mg/Ml Syringe) 1 mg IM .X1 PRN PRN Reason: Hypoglycemia Glucagon (Glucagon 1 Mg/Ml Syringe) 1 mg IM .X1 PRN PRN Reason: Hypoglycemia Remdesivir (Investigational) (100 mg/ Sodium Chloride) 250 mls @ 125 mls/hr IV DAILY [facility]; Protocol Stop: 05/08/20 11:59 Last Infusion: 05/07/20 13:41 Dose: Infused Documented by: Insulin Glargine (Insulin Glargine 100 Units/Ml Pen) 40 units SC BID [facility] Last Admin: 05/07/20 09:31 Dose: 40 units Documented by: Insulin Human Lispro (Insulin Lispro 100 Unit/Ml Insuln.Pen) 0 unit SC ACHS [facility]; Protocol Last Admin: 05/07/20 11:17 Dose: 3 units Documented by: Labetalol HCl (Labetalol (Prefilled) 20 Mg/4 Ml) 10 mg IV Q4 PRN PRN Reason: SBP > 220 OR DBP > 120 Lisinopril (Lisinopril 10 Mg Tablet) 30 mg PO DAILY [facility] Last Admin: 05/07/20 09:30 Dose: 30 mg Documented by: Melatonin (Melatonin 3 Mg Tablet) 3 mg PO QHS PRN PRN PRN Reason: INSOMNIA Nutritional Formula (Lactose Free) (Glucerna Shake 120 Ml Liquid) 120 ml PO 4X/DAY [facility] Last Admin: 05/07/20 13:41 Dose: 120 ml Documented by: Ondansetron HCl (Ondansetron 4 Mg/2 Ml Vial) 4 mg IV Q8H PRN PRN PRN Reason: NAUSEA/VOMITING Sodium Chloride (0.9% Saline Lock 10 Ml Syringe) 10 - 40 ml IV UD PRN PRN Reason: SALINE FLUSH Last Admin: 05/07/20 11:19 Dose: 10 ml Documented by: STROKE Vital Signs/Narrative: Vital Signs Temp Pulse Resp BP Pulse Ox 05/07/20 13:40 95.2 F L 60 20 H 146/56 H 94 Medical Necessity - Tobacco Use Smoking Status: Never smoker Tobacco Use: Non-smoker Assessment/Plan All Active Problems (Last Updated 05/04/20 @ 01:[address] Jethro López MD) Ataxia (Acute) COVID-19 virus infection (Acute) Acute CVA (cerebrovascular accident) (Acute) 1. 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 Trig 80, T chol 119, LDL 72 PT/OT/ST following 2. Acute hypoxic respiratory insufficiency secondary to Acute COVID-19 infection Improved, on room air Will continue to wean off, encourage IS 3. Acute COVID-19 infection/pneumonia On dexamethasone and remdesivir ID following 4. Hypertension, better controlled on atenolol and lisinopril Continue to monitor 5. Type 2 DM, HbA1c 10.2, started on Lantus BS uncontrolled, to increase to 50 units twice daily, continue with insulin sliding scale blood glucose checks 6. Morbid obesity, BMI 40.6, continue on lifestyle modification 7. DVT PPx- Lovenox SC BID 8. Disposition: Possible discharge in a.m. Inpatient E&M: 60192 Subs Hosp L2
[2020-05-07 17:30] LABS: Bedside Glucose 358 mg/dL (70-110)
[2020-05-07] MEDS: Atorvastatin Calcium 80 MG Tablet PO (20:45)
[2020-05-07 23:01] LABS: Bedside Glucose 397 mg/dL (70-110)
[2020-05-08] VITALS (10 sets, daily range): BP systolic 133–166; BP diastolic 61–84; PULSE 55–66; RESP 16–20; TEMP 35.6–36.8; O2SAT 92–96; BMI 40.5
[2020-05-08] MEDS: Insulin Lispro 100 UNIT/ML INSULN.PEN SC ×4 (07:02→21:49)
[2020-05-08 07:10] LABS: Bedside Glucose 276 mg/dL (70-110)
[2020-05-08 07:27] LABS: Hematocrit 42.6 % (40-54); Hemoglobin 13.8 g/dL (13.0-16.5); Mean Corp Hgb Conc 32.4 g/dL (32-36); Mean Corpuscular Hgb 28.9 pg (27.0-32.0); Mean Corpuscular Volume 89.1 fL (80-94); Mean Platelet Vol. 10.7 fl (6.2-12.0); Platelet Count 181 K/mm3 (150-450); RBC Distribution Width CV 12.7 % (11.6-14.6); RBC Distribution Width SD 41.9 fl (35.1-43.9); Red Blood Count 4.78 M/mm3 (4.6-6.2); White Blood Count 5.6 K/mm3 (4.4-11.0)
[2020-05-08 07:59] LABS: ALB/GLOB Ratio 0.7 RATIO (0.9-2.4); AST(SGOT) 58 U/L (15-37); Alanine Aminotransfer ALT/SGPT 61 U/L (16-61); Albumin, Serum 2.6 g/dL (3.2-5.0); Alkaline Phosphatase 66 U/L (45-117); Anion Gap 9 (5-15); BUN 15 mg/dL (7-18); BUN/Creat Ratio 22.5 RATIO (10-20); Calcium,Total 7.4 mg/dL (8.5-10.1); Chloride 102 mmol/L (98-107); Creatinine, Serum 0.67 mg/dL (0.70-1.30); EST Glomerular Filtration Rate 126 mL/min (>60); Est Glom Filt Rate - Afr Amer 153 mL/min (>60); Estimated Creatinine Clearance 69.35 ml/min; Globulin 3.8 g/dL (2.2-4.2); Glucose 280 mg/dL (74-106); Potassium 3.4 mmol/L (3.5-5.1); Protein, Total 6.4 g/dL (6.4-8.2); Sodium Level 138 mmol/L (136-145)
[2020-05-08] MEDS: Glucerna Shake 120 ML LIQUID PO ×3 (09:14→16:41)
[2020-05-08] MEDS: Clopidogrel Bisulfate 75 MG Tablet PO (09:16)
[2020-05-08] MEDS: Famotidine 20 MG Tablet PO ×2 (09:16→21:51)
[2020-05-08] MEDS: Atenolol 25 MG Tablet PO (09:16)
[2020-05-08] MEDS: dexAMETHasone 4 MG Tablet 6 MG PO (09:16)
[2020-05-08] MEDS: Enoxaparin 40 MG/0.4 ML Syringe SC ×2 (09:16→21:51)
[2020-05-08] MEDS: Lisinopril 10 MG Tablet 30 MG PO (09:16)
[2020-05-08] MEDS: Aspirin E.C. 81 MG Tablet PO (09:16)
[2020-05-08 11:45] LABS: Bedside Glucose 270 mg/dL (70-110)
--- NOTE | 2020-05-08 17:06 | PN_ITS ---
Patient Problems: Active and Suspected Problems (Last Updated 05/04/20 @ 01:[address] Jethro López MD) Ataxia (Acute) COVID-19 virus infection (Acute) Acute CVA (cerebrovascular accident) (Acute) Reason for Visit: Follow-up on acute CVA/ hypoxia/Acute COVID-19 infection Subjective: Patient was seen and examined. He appears depressed. He voiced out that he is unable to go home and take insulin. He says he lives alone. He has no one to assist him. He is not comfortable with giving himself insulin. Later on updated a family who wants patient to go to a senior care facility for subacute rehab. They agreed that he was depressed. On further discussion with patient, he admits that he is depressed. Social work has been consulted. Discharge planning will be initiated. Objective: Physical exam: General: Alert, Oriented x3, Cooperative, No apparent distress, off oxygen, morbidly obese HEENT: Atraumatic, PERRLA, EOMI, Normocephalic Neck: Supple Lungs: Clear to auscultation, Normal air movement Cardiovascular: Regular rate, Regular Rhythm, Normal S1, Normal S2, No murmurs Abdomen: Bowel Sounds Present, Soft, Non Tender, Non-Distended, No Hepato- splenomegaly Extremities: No edema Skin: No rashes Musculoskeletal: No Tenderness to Palpation of Joints or Extremities Lymphatic: No Cervical, Supraclavicular, or Inguinal Adenopathy - except for left peripheral field neglect Neurological: Neuro grossly intact Psych/Mental Status: Normal Affect, Appropriate Vitals/I&O's: Vital Signs Temp Pulse Resp BP Pulse Ox 96.0 F L 62 18 162/71 H 96 05/08/20 16:51 05/08/20 16:51 05/08/20 16:51 05/08/20 16:51 05/08/20 16:51 Oxygen Flow Rate (L/min) 2 Oxygen Delivery Method Room Air Weight: 121 kg Body Mass Index (BMI) 40.5 Intake and Output for Last 24 Hours 05/06/20 05/07/20 05/08/20 23:59 23:59 22:59 Intake Total 1530 / 1530 1210 / 1330 1310 / 1310 Output Total 1150 / 1150 Balance 380 / 380 1210 / 1330 1310 / 1310 Microbiology Past 72 Hours 05/06/20 16:55 Urine, Catheterized Urine Culture - Preliminary Streptococcus agalactiae (B) 05/03/20 22:22 Urine Catheter - Catheter Urine Culture - Preliminary Streptococcus agalactiae (B) Alpha hemolytic organism Staphylococcus epidermidis Laboratory Results 05/07/20 20:54: POC Glucose 397 H 05/08/20 05:50: WBC 5.6, RBC 4.78, Hgb 13.8, Hct 42.6, MCV 89.1, MCH 28.9, MCHC 32.4, RDW Std Deviation 41.9, RDW Coeff of Neil 12.7, Plt Count 181, MPV 10.7 05/08/20 05:50: Sodium 138, Potassium 3.4 L, Chloride 102, Carbon Dioxide 27.0, Anion Gap 9, BUN 15, Creatinine 0.67 L, Estim Creat Clear Calc 69.35, Est GFR (MDRD) Af Amer 153, Est GFR (MDRD) Non-Af 126, BUN/Creatinine Ratio 22.5 H, Glucose 280 H, Calcium 7.4 L, Total Bilirubin 0.50, AST 58 H, ALT 61, Alkaline Phosphatase 66, Total Protein 6.4, Albumin 2.6 L, Globulin 3.8, Albumin/Globulin Ratio 0.7 L 05/08/20 07:01: POC Glucose 276 H 05/08/20 11:18: POC Glucose 270 H Current Medications Acetaminophen (Acetaminophen 325 Mg Tablet) 650 mg PO Q6H PRN PRN PRN Reason: Pain Score 1-10/Temp > 100.7 F Last Admin: 05/04/20 10:12 Dose: 650 mg Documented by: Aspirin (Aspirin E.C. 81 Mg Tablet) 81 mg PO DAILY [facility] Last Admin: 05/08/20 09:16 Dose: 81 mg Documented by: Atenolol (Atenolol 25 Mg Tablet) 25 mg PO DAILY [facility] Last Admin: 05/08/20 09:16 Dose: 25 mg Documented by: Atorvastatin Calcium (Atorvastatin Calcium 80 Mg Tablet) 80 mg PO QHS [facility] Last Admin: 05/07/20 20:45 Dose: 80 mg Documented by: Clopidogrel Bisulfate (Clopidogrel Bisulfate 75 Mg Tablet) 75 mg PO DAILY [facility] Last Admin: 05/08/20 09:16 Dose: 75 mg Documented by: Dexamethasone (Dexamethasone 4 Mg Tablet) 6 mg PO DAILY@0800 [facility] Stop: 05/13/20 08:01 Last Admin: 05/08/20 09:16 Dose: 6 mg Documented by: Dextrose (Dextrose 50%-Water 25 Gm/50 Ml Disp.Syrin) 0 gm IV X1 PRN; Protocol PRN Reason: Hypoglycemia Dextrose (Dextrose 50%-Water 25 Gm/50 Ml Disp.Syrin) 0 gm IV X1 PRN; Protocol PRN Reason: Hypoglycemia Enoxaparin Sodium (Enoxaparin 40 Mg/0.4 Ml Syringe) 40 mg SC BID [facility] Last Admin: 05/08/20 09:16 Dose: 40 mg Documented by: Famotidine (Famotidine 20 Mg Tablet) 20 mg PO BID [facility] Last Admin: 05/08/20 09:16 Dose: 20 mg Documented by: Glucagon (Glucagon 1 Mg/Ml Syringe) 1 mg IM .X1 PRN PRN Reason: Hypoglycemia Glucagon (Glucagon 1 Mg/Ml Syringe) 1 mg IM .X1 PRN PRN Reason: Hypoglycemia Insulin Glargine (Insulin Glargine 100 Units/Ml Pen) 50 units SC 1100,2200 [facility] Last Admin: 05/08/20 11:22 Dose: 50 units Documented by: Insulin Human Lispro (Insulin Lispro 100 Unit/Ml Insuln.Pen) 0 unit SC [facility]; Protocol Last Admin: 05/08/20 16:40 Dose: 2 units Documented by: Labetalol HCl (Labetalol (Prefilled) 20 Mg/4 Ml) 10 mg IV Q4 PRN PRN Reason: SBP > 220 OR DBP > 120 Lisinopril (Lisinopril 10 Mg Tablet) 30 mg PO DAILY [facility] Last Admin: 05/08/20 09:16 Dose: 30 mg Documented by: Melatonin (Melatonin 3 Mg Tablet) 3 mg PO QHS PRN PRN PRN Reason: INSOMNIA Nutritional Formula (Lactose Free) (Glucerna Shake 120 Ml Liquid) 120 ml PO 4X/DAY [facility] Last Admin: 05/08/20 16:41 Dose: 120 ml Documented by: Ondansetron HCl (Ondansetron 4 Mg/2 Ml Vial) 4 mg IV Q8H PRN PRN PRN Reason: NAUSEA/VOMITING Sodium Chloride (0.9% Saline Lock 10 Ml Syringe) 10 - 40 ml IV UD PRN PRN Reason: SALINE FLUSH Last Admin: 05/07/20 11:19 Dose: 10 ml Documented by: STROKE Vital Signs/Narrative: Vital Signs Temp Pulse Resp BP Pulse Ox 05/08/20 16:51 96.0 F L 62 18 162/71 H 96 05/08/20 14:57 57 L 05/08/20 13:10 97.1 F L 60 20 H 155/84 H 96 Medical Necessity - Tobacco Use Smoking Status: Never smoker Tobacco Use: Non-smoker Assessment/Plan All Active Problems (Last Updated 05/04/20 @ 01:[address] Jethro López MD) Ataxia (Acute) COVID-19 virus infection (Acute) Acute CVA (cerebrovascular accident) (Acute) 65-year-old male who was admitted on 05/04/20 with shortness of breath and confusion 1. Acute/subacute left side of nikki and brainstem and right occipital stroke, suggestive of cardioembolic source CTA of head and neck showed focal 80% stenosis of [employer] Teleneurology consulted, on aspirin and Plavix for 21 days then aspirin alone HgbA1c is uncontrolled at 10.2. Trig 80, T chol 119, LDL 72 PT/OT/ST following 2. Acute hypoxic respiratory insufficiency secondary to Acute COVID-19 infection Patient currently on room air Continue to encourage incentive spirometer 3. Acute COVID-19 infection/pneumonia On dexamethasone. Completed with Remdesivir. ID following 4. Depression, started on Zoloft 5. Hypertension, newly uncontrolled, not at goal Relative bradycardia noted On atenolol and lisinopril Would add amlodipine 5 mg daily Continue to monitor 5. Type 2 DM, HbA1c 10.2, started on Lantus BS a little better controlled today, Will continue on 50 units twice daily, continue with insulin sliding scale with blood glucose checks 6. Morbid obesity, BMI 40.6, continue on lifestyle modification 7. DVT PPx- Lovenox SC BID 8. Disposition: Possible discharge in a.m. Inpatient E&M: 93940 Subs Hosp L2
[2020-05-08 17:26] LABS: Bedside Glucose 278 mg/dL (70-110)
[2020-05-08] MEDS: Sertraline 50 MG Tablet PO (17:35)
[2020-05-08] MEDS: amLODIPine 5 MG Tablet PO (17:35)
[2020-05-08] MEDS: Atorvastatin Calcium 80 MG Tablet PO (21:51)
[2020-05-08 22:51] LABS: Bedside Glucose 329 mg/dL (70-110)
[2020-05-09] VITALS (8 sets, daily range): BP systolic 124–160; BP diastolic 64–87; PULSE 53–64; RESP 18–20; TEMP 36.3–36.6; O2SAT 93–95; BMI 40.5
[2020-05-09] MEDS: Insulin Lispro 100 UNIT/ML INSULN.PEN SC ×4 (06:39→23:01)
[2020-05-09 06:52] LABS: Hematocrit 41.3 % (40-54); Mean Corp Hgb Conc 33.9 g/dL (32-36); Mean Corpuscular Hgb 29.5 pg (27.0-32.0); Mean Corpuscular Volume 87.1 fL (80-94); Mean Platelet Vol. 10.6 fl (6.2-12.0); Platelet Count 208 K/mm3 (150-450); RBC Distribution Width CV 12.6 % (11.6-14.6); RBC Distribution Width SD 39.9 fl (35.1-43.9); Red Blood Count 4.74 M/mm3 (4.6-6.2); White Blood Count 5.5 K/mm3 (4.4-11.0)
[2020-05-09 07:15] LABS: Bedside Glucose 177 mg/dL (70-110)
[2020-05-09 07:24] LABS: ALB/GLOB Ratio 0.8 RATIO (0.9-2.4); AST(SGOT) 60 U/L (15-37); Alanine Aminotransfer ALT/SGPT 66 U/L (16-61); Albumin, Serum 2.6 g/dL (3.2-5.0); Alkaline Phosphatase 68 U/L (45-117); Anion Gap 9 (5-15); BUN 14 mg/dL (7-18); BUN/Creat Ratio 26.9 RATIO (10-20); Calcium,Total 7.8 mg/dL (8.5-10.1); Chloride 101 mmol/L (98-107); Creatinine, Serum 0.52 mg/dL (0.70-1.30); EST Glomerular Filtration Rate 168 mL/min (>60); Est Glom Filt Rate - Afr Amer 204 mL/min (>60); Estimated Creatinine Clearance 69.35 ml/min; Globulin 3.3 g/dL (2.2-4.2); Glucose 203 mg/dL (74-106); Potassium 3.7 mmol/L (3.5-5.1); Protein, Total 5.9 g/dL (6.4-8.2); Sodium Level 138 mmol/L (136-145)
[2020-05-09] MEDS: Clopidogrel Bisulfate 75 MG Tablet PO (09:45)
[2020-05-09] MEDS: Atenolol 25 MG Tablet PO (09:45)
[2020-05-09] MEDS: Lisinopril 10 MG Tablet 30 MG PO (09:45)
[2020-05-09] MEDS: Sertraline 50 MG Tablet PO (09:46)
[2020-05-09] MEDS: Famotidine 20 MG Tablet PO ×2 (09:46→23:01)
[2020-05-09] MEDS: dexAMETHasone 4 MG Tablet 6 MG PO (09:46)
[2020-05-09] MEDS: Aspirin E.C. 81 MG Tablet PO (09:46)
[2020-05-09] MEDS: amLODIPine 5 MG Tablet PO (09:46)
[2020-05-09] MEDS: Enoxaparin 40 MG/0.4 ML Syringe SC ×2 (09:47→23:01)
[2020-05-09] MEDS: Glucerna Shake 120 ML LIQUID PO (09:48)
--- NOTE | 2020-05-09 10:06 | CASEMGMT ---
SW called patient on his phone as he is COVID positive. SW spoke with him about going to a retirement facility for rehab. He asked if he could have help at home. KARISSA told him we can set up home health, but the nurse will not come out daily to help him with insulin and therapy will only come out a couple of times a week. SW told him if he goes somewhere for rehab he will get therapy daily and they can do teaching regarding his insulin. He seemed agreeable to going somewhere. He then said he had to go as he has another call coming in on his cell phone. SW asked if SW can call his brother and he said that is fine. SW called patient's brother Rafael. Introduced self and role at [facility]. SW spoke with him about d/c plan. SW explained both home health and SNF. He agrees SNF would be good for him. SW explained because he is COVID positive he will have to go to a facility that is in [place] or [place]. SW explained those are the closest facilities that take patients that are positive for COVID. KARISSA explained he will be in quarantine for 14 days and SW does not know about visitation. He said he agrees with patient going somewhere. He would prefer the one in [place] as this is closest and then SW can just try any of the other ones. KARISSA told him SW does have a call out to [facility] to see if they take [employer]. SW told him SW can work on things and update him as SW knows more. Dorcas SIMPSON
[2020-05-09 13:00] LABS: Bedside Glucose 253 mg/dL (70-110)
--- NOTE | 2020-05-09 13:33 | CASEMGMT ---
KARISSA received a return call from Dorcas at [facility] and asked SW to send the referral. They can check to see if they are in network with his insurance. KARISSA faxed referral to [facility]. KARISSA also called [facility] and spoke with Nati regarding referral. KARISSA also faxed referral to [facility]. KARISSA eventually heard back from both facilities. [facility] said they are not in network with patient's insurance. [facility] said they can take patient and she will start the pre-cert. KARISSA called patient's brother Rafael and let him know this information. KARISSA also notified RN. KARISSA tried a couple of times to reach patient via phone, however there was no answer. KARISSA will continue to try and reach patient. Dorcas MUKHERJEE MSW
[2020-05-09 16:10] LABS: Bedside Glucose 276 mg/dL (70-110)
--- NOTE | 2020-05-09 19:14 | PN_ITS ---
Patient Problems: Active and Suspected Problems (Last Updated 05/04/20 @ 01:[address] Jethro López MD) Ataxia (Acute) COVID-19 virus infection (Acute) Acute CVA (cerebrovascular accident) (Acute) Subjective: Patient was seen and examined today, he remains confused at this time, he states he has to go to the bathroom but does not explain to this examiner what he needs to do. Patient is currently on room air and does not appear to be in any respiratory distress. - Physical Exam Vitals/I&O's: Vital Signs Temp Pulse Resp BP Pulse Ox 97.8 F 60 18 160/72 H 94 05/09/20 15:40 05/09/20 15:40 05/09/20 15:40 05/09/20 15:40 05/09/20 15:40 Oxygen Flow Rate (L/min) 2 Oxygen Delivery Method Room Air Weight: 121 kg Body Mass Index (BMI) 40.5 Intake and Output for Last 24 Hours 05/08/20 05/08/20 05/09/20 00:59 23:59 23:59 Intake Total 1260 / 1260 Balance 1260 / 1260 General: Alert, Cooperative, No apparent distress, Well developed, Confused HEENT: Atraumatic, PERRLA, EOMI, Normocephalic Oral: Moist Mucosa Neck: Supple, No JVD, Trachea Midline, Thyroid Normal Size and Texture Lungs: Clear to auscultation, Normal air movement, No rhonchi, No wheeze Cardiovascular: Regular rate, Regular Rhythm, Normal S1, Normal S2, No murmurs Abdomen: Bowel Sounds Present, Soft, Non Tender, Non-Distended Extremities: No clubbing, No cyanosis, No edema, Capillary Refill Less than 3 Seconds Skin: No rashes, No breakdown Musculoskeletal: No Tenderness to Palpation of Joints or Extremities Neurological: Cranial nerves II-XII grossly intact, Neuro grossly intact, Se nsory exam intact to light touch and pain Psych/Mental Status: - - Patient is alert, he follows simple directions but he is confused Microbiology Past 72 Hours 05/06/20 16:55 Urine, Catheterized Urine Culture - Final Streptococcus agalactiae (B) 05/03/20 22:22 Urine Catheter - Catheter Urine Culture - Final Streptococcus agalactiae (B) Actinomyces israelii Staphylococcus epidermidis Laboratory Results 05/08/20 21:49: POC Glucose 329 H 05/09/20 06:02: WBC 5.5, RBC 4.74, Hgb 14.0, Hct 41.3, MCV 87.1, MCH 29.5, MCHC 33.9, RDW Std Deviation 39.9, RDW Coeff of Neil 12.6, Plt Count 208, MPV 10.6 05/09/20 06:02: Sodium 138, Potassium 3.7, Chloride 101, Carbon Dioxide 28.0, Anion Gap 9, BUN 14, Creatinine 0.52 L, Estim Creat Clear Calc 69.35, Est GFR (MDRD) Af Amer 204, Est GFR (MDRD) Non-Af 168, BUN/Creatinine Ratio 26.9 H, Glucose 203 H, Calcium 7.8 L, Total Bilirubin 0.50, AST 60 H, ALT 66 H, Alkaline Phosphatase 68, Total Protein 5.9 L, Albumin 2.6 L, Globulin 3.3, Albumin/Globulin Ratio 0.8 L 05/09/20 06:38: POC Glucose 177 H 05/09/20 12:40: POC Glucose 253 H 05/09/20 15:34: POC Glucose 276 H Current Medications Acetaminophen (Acetaminophen 325 Mg Tablet) 650 mg PO Q6H PRN PRN PRN Reason: Pain Score 1-10/Temp > 100.7 F Last Admin: 05/04/20 10:12 Dose: 650 mg Documented by: Amlodipine Besylate (Amlodipine 5 Mg Tablet) 5 mg PO DAILY [facility] Last Admin: 05/09/20 09:46 Dose: 5 mg Documented by: Aspirin (Aspirin E.C. 81 Mg Tablet) 81 mg PO DAILY [facility] Last Admin: 05/09/20 09:46 Dose: 81 mg Documented by: Atenolol (Atenolol 25 Mg Tablet) 25 mg PO DAILY [facility] Last Admin: 05/09/20 09:45 Dose: 25 mg Documented by: Atorvastatin Calcium (Atorvastatin Calcium 80 Mg Tablet) 80 mg PO QHS [facility] Last Admin: 05/08/20 21:51 Dose: 80 mg Documented by: Clopidogrel Bisulfate (Clopidogrel Bisulfate 75 Mg Tablet) 75 mg PO DAILY [facility] Last Admin: 05/09/20 09:45 Dose: 75 mg Documented by: Dexamethasone (Dexamethasone 4 Mg Tablet) 6 mg PO DAILY@0800 [facility] Stop: 05/13/20 08:01 Last Admin: 05/09/20 09:46 Dose: 6 mg Documented by: Dextrose (Dextrose 50%-Water 25 Gm/50 Ml Disp.Syrin) 0 gm IV X1 PRN; Protocol PRN Reason: Hypoglycemia Dextrose (Dextrose 50%-Water 25 Gm/50 Ml Disp.Syrin) 0 gm IV X1 PRN; Protocol PRN Reason: Hypoglycemia Enoxaparin Sodium (Enoxaparin 40 Mg/0.4 Ml Syringe) 40 mg SC BID [facility] Last Admin: 05/09/20 09:47 Dose: 40 mg Documented by: Famotidine (Famotidine 20 Mg Tablet) 20 mg PO BID [facility] Last Admin: 05/09/20 09:46 Dose: 20 mg Documented by: Glucagon (Glucagon 1 Mg/Ml Syringe) 1 mg IM .X1 PRN PRN Reason: Hypoglycemia Glucagon (Glucagon 1 Mg/Ml Syringe) 1 mg IM .X1 PRN PRN Reason: Hypoglycemia Insulin Glargine (Insulin Glargine 100 Units/Ml Pen) 50 units SC 1100,2200 [facility] Last Admin: 05/09/20 12:44 Dose: 50 units Documented by: Insulin Human Lispro (Insulin Lispro 100 Unit/Ml Insuln.Pen) 0 unit SC ACHS [facility]; Protocol Last Admin: 05/09/20 15:37 Dose: 2 units Documented by: Labetalol HCl (Labetalol (Prefilled) 20 Mg/4 Ml) 10 mg IV Q4 PRN PRN Reason: SBP > 220 OR DBP > 120 Lisinopril (Lisinopril 10 Mg Tablet) 30 mg PO DAILY [facility] Last Admin: 05/09/20 09:45 Dose: 30 mg Documented by: Melatonin (Melatonin 3 Mg Tablet) 3 mg PO QHS PRN PRN PRN Reason: INSOMNIA Sertraline HCl (Sertraline 50 Mg Tablet) 50 mg PO DAILY [facility] Last Admin: 05/09/20 09:46 Dose: 50 mg Documented by: Sodium Chloride (0.9% Saline Lock 10 Ml Syringe) 10 - 40 ml IV UD PRN PRN Reason: SALINE FLUSH Last Admin: 05/07/20 11:19 Dose: 10 ml Documented by: Medical Necessity - Tobacco Use Smoking Status: Never smoker Tobacco Use: Non-smoker Assessment/Plan All Active Problems (Last Updated 05/04/20 @ 01:[address] Jethro López MD) Ataxia (Acute) COVID-19 virus infection (Acute) Acute CVA (cerebrovascular accident) (Acute) #1 acute/subacute left side of nikki and brainstem and right occipital stroke- felt to possibly be secondary to embolic source, patient will remain on aspirin and Plavix for now per neurology consultation #2 acute COVID-19 infection/pneumonia-patient is now on dexamethasone, he completed remdesivir #3 acute hypoxia-resolved at this time-secondary to COVID-19 infection #4 metabolic encephalopathy-probably secondary to acute CVA #5 uncontrolled type 2 diabetes-continue to monitor blood sugars #6 morbid obesity #7 acute debility secondary to #1 and #2-patient will need placement short-term in a custodial facility, we are awaiting approval for this to happen from the patient's insurance carrier Inpatient E&M: 22325 Subs Hosp L2
[2020-05-09] MEDS: Atorvastatin Calcium 80 MG Tablet PO (23:00)
[2020-05-09 23:31] LABS: Bedside Glucose 355 mg/dL (70-110)
[2020-05-10 01:47] VITALS: BMI 40.5
[2020-05-10 04:43] VITALS: BP 159/68; PULSE 54; RESP 17; TEMP 36.3; O2SAT 94
[2020-05-10] MEDS: Insulin Lispro 100 UNIT/ML INSULN.PEN SC ×3 (06:48→16:20)
[2020-05-10 07:00] LABS: Bedside Glucose 241 mg/dL (70-110)
[2020-05-10 09:55] VITALS: BP 121/42; PULSE 64; RESP 18; TEMP 36.4; O2SAT 94
[2020-05-10] MEDS: dexAMETHasone 4 MG Tablet 6 MG PO (09:59)
[2020-05-10] MEDS: Lisinopril 10 MG Tablet 30 MG PO (10:00)
[2020-05-10] MEDS: Aspirin E.C. 81 MG Tablet PO (10:00)
[2020-05-10] MEDS: Sertraline 50 MG Tablet PO (10:00)
[2020-05-10] MEDS: amLODIPine 5 MG Tablet PO (10:01)
[2020-05-10] MEDS: Famotidine 20 MG Tablet PO (10:01)
[2020-05-10] MEDS: Atenolol 25 MG Tablet PO (10:01)
[2020-05-10] MEDS: Clopidogrel Bisulfate 75 MG Tablet PO (10:01)
[2020-05-10] MEDS: Enoxaparin 40 MG/0.4 ML Syringe SC (10:02)
[2020-05-10 10:16] LABS: Bedside Glucose 211 mg/dL (70-110)
[2020-05-10 11:54] VITALS: O2SAT 97
--- NOTE | 2020-05-10 15:00 | CASEMGMT ---
KARISSA received a call from Nati at [facility]. She received authorization for patient. KARISSA let her know patient will probably come today. KARISSA notified physician that patient was approved. Once KARISSA knows for sure patient will be discharged today KARISSA will notify patient's brother. KARISSA again tried to reach patient via phone in his room, however there was no answer. Yesterday patient's RN Sangeetha notified patient he was accepted at [facility]. Dorcas MUKHERJEE MSW
--- NOTE | 2020-05-10 15:29 | CASEMGMT ---
KARISSA called patient's brother, Rafael and notified him that patient's insurance did approve him to go to [facility]. KARISSA told him physician will likely send him today. He would like a call when a time has been arranged. KARISSA called [facility] and put patient on the will call list. KARISSA notified RN and attempted to notify patient, but he has not answered his phone. KARISSA completed convalescent on HENS. Await orders. Plan: d/c to [facility] under skilled level of care. [facility] will transport. Dorcas MUKHERJEE MSW
[2020-05-10 16:25] LABS: Bedside Glucose 310 mg/dL (70-110)
--- NOTE | 2020-05-10 16:33 | TREXTCAR_ITS ---
- Diet 05/09/20 12:40 Diet: Cardiac: Calorie-Controlled Food consistency:: Mechanical (Minced/Moist)-small bites, small sips, slow rate-sitting upright Liquid Consistency:: Regular/Thin Dietary Modifications:: Consistent Carbohydrate Is pt able to select menu?: Yes How many daily calories?: 2200 calorie - Routine Orders/Code Status Routine Lab Work: - - fingerstick blood sugars ACQHS-coverage with sliding scale Humalog per protocol: 200-250: 5 units SQ, 251-300: 8 units SQ, 301-350: 12 units SQ, 351-400: 15 units SQ Code Status: Full Code - Therapies Weight Bearing: Full weight bearing Physical Therapy: Eval and Treat Occupational Therapy: Eval and Treat Speech Therapy: Eval and Treat - Problem/Diagnosis (1) Type 2 diabetes mellitus Status: Chronic (2) Essential hypertension Status: Chronic (3) COVID-19 virus infection Status: Acute (4) Acute CVA (cerebrovascular accident) Status: Acute Comment: acute/subacute infarcts of the left side side of the nikki and brainstem and right occipital lobe (5) Encephalopathy acute Status: Acute Comment: due to stroke - Allergies/Procedures Done in Hospital Allergies/Adverse Reactions: Allergies Unable to Assess Allergy (Verified 05/03/20 19:37) Procedures: 2-D Echocardiogram - Type of Care/Length of Stay Estimated LOS: Convalescent Care Less Than 30 days Type of Care Needed: Skilled Rehab Potential: Good Prognosis: Good - Additional Orders/Day of Discharge Additional Orders: 30 day holter recommended after discharge to screen for a-fib H&P will serve as current which was dated: 05/04/20 Day of Discharge: 05/10/20 - Dietary and Speech Recommendations Dietitian Recommendations/Changes: 2199 calorie/carbohydrate-controlled/cardiac diet. D/C glucerleatha lindsey with [employer]. Speech Linguistic Eval Summary: Pt presented with poor insight into deficits with frequent reminders on why he was admitted to [facility]. Pt oriented to name, , location, and month/year. Pt close to actual date (2 days off). Pt abloeto recall 2/3 words with 5 minute delay although asked same questions regarding date and reason for admission several times. Pt with slowed response time and word finding. Pt able to name 7 animals in one minute. Pt instructed on how to use call light for assistance however several minutes later asked what do I do if I need to use the bathroom?. - Follow Up Care Primary Care Physician: [facility],[place] [Primary Care Provider] -
[2020-05-10 16:46] VITALS: BP 121/42; PULSE 64; RESP 18; TEMP 36.4; O2SAT 94
--- NOTE | 2020-05-10 17:36 | NURSING ---
Report called to nurse Kirby for pt transfer to SNF.
--- NOTE | 2020-05-11 11:32 | PCM.DC.SUM ---
Discharge Date and Diagnosis - Problem List Patient Problems: Active and Suspected Problems (Last Updated 05/04/20 @ 01:[address] Jethro López MD) Ataxia (Acute) COVID-19 virus infection (Acute) Acute CVA (cerebrovascular accident) (Acute) acute/subacute infarcts of the left side side of the nikki and brainstem and right occipital lobe Encephalopathy acute (Acute) due to stroke Date of Admission: 05/04/20 Date of Discharge: 05/10/20 - Primary Discharge Diagnosis Acute Problems: Active Problems (Last Updated 05/04/20 @ 01:[address] Jethro López MD) #1 acute/subacute left side of nikki and brainstem and right occipital stroke possibly as a sequela line to COVID-19 infection #2 acute COVID-19 infection/pneumonia #3 acute hypoxia-secondary to COVID-19 infection #4 metabolic encephalopathy-secondary to acute CVA #5 uncontrolled type 2 diabetes #6 morbid obesity #7 acute debility secondary to #1 and #2 - Secondary Discharge Diagnosis Chronic Problems: Chronic Problems (Last Updated 05/04/20 @ 01:[address] Jethro López MD) Type 2 diabetes mellitus (Chronic) Essential hypertension (Chronic) Hospital Course and Treatment Operations: None Procedures: 2-D Echocardiogram Summary of Care Provided: The patient is a 65 year old M who was seen in the emergency room with a chief complaint of weakness. He had admitted that he had not taken his medications at home for a few days. Work-up in the emergency room included a noncontrasted head CT that was unremarkable for acute process, chest x-ray showed questionable interstitial prominence, screening labs were for the most part unremarkable, his Covid test was positive. Patient was admitted to [facility] initially for COVID-19 infection and ataxia rule out stroke, MRI was obtained which came back positive for an acute stroke in the posterior circulation, he was transferred to PCU for stroke work-up, CT of the head and neck was performed and 2D echo was performed. Consultation from infectious diseases and pulmonary medicine was obtained as well as teleneurology, teleneurology recommended Plavix and aspirin only at this time and recommended a follow-up 30-day Holter in the near future. Patient was seen by PT and OT as well as speech therapy, he was weaned off oxygen, he it was felt he would benefit from inpatient physical therapy and speech therapy and arrangements were set up for him to go to a senior care facility. On 05/10/2020, patient was seen and examined:General: Alert, Cooperative, No apparent distress, Well developed, Confused HEENT: Atraumatic, PERRLA, EOMI, Normocephalic Oral: Moist Mucosa Neck: Supple, No JVD, Trachea Midline, Thyroid Normal Size and Texture Lungs: Clear to auscultation, Normal air movement, No rhonchi, No wheeze Cardiovascular: Regular rate, Regular Rhythm, Normal S1, Normal S2, No murmurs Abdomen: Bowel Sounds Present, Soft, Non Tender, Non-Distended Extremities: No clubbing, No cyanosis, No edema, Capillary Refill Less than 3 Seconds Skin: No rashes, No breakdown Musculoskeletal: No Tenderness to Palpation of Joints or Extremities Neurological: Cranial nerves II-XII grossly intact, Neuro grossly intact, Sensory exam intact to light touch and pain Psych/Mental Status: - - Patient is alert, he follows simple directions but he is confused Patient was transferred to senior care facility on 05/10/2020 in stable condition Patient Problems: Active and Suspected Problems (Last Updated 05/04/20 @ 01:[address] Jethro López MD) Ataxia (Acute) COVID-19 virus infection (Acute) Acute CVA (cerebrovascular accident) (Acute) acute/subacute infarcts of the left side side of the nikki and brainstem and right occipital lobe Encephalopathy acute (Acute) due to stroke - Physical Exam Vitals/I&O's: Vital Signs Temp Pulse Resp BP Pulse Ox 97.6 F L 64 18 121/42 H 94 05/10/20 16:46 05/10/20 16:46 05/10/20 16:46 05/10/20 16:46 05/10/20 16:46 Oxygen Flow Rate (L/min) 2 Oxygen Delivery Method Room Air Weight: 121 kg Body Mass Index (BMI) 40.5 Intake and Output for Last 24 Hours 05/09/20 05/10/20 05/11/20 23:59 23:59 23:59 Intake Total 1260 / 1380 360 / 360 Output Total 450 / 450 Balance 1260 / 1080 -90 / -90 Microbiology Past 72 Hours 05/06/20 16:55 Urine, Catheterized Urine Culture - Final Streptococcus agalactiae (B) 05/03/20 22:22 Urine Catheter - Catheter Urine Culture - Final Streptococcus agalactiae (B) Actinomyces israelii Staphylococcus epidermidis Laboratory Results 05/10/20 16:16: POC Glucose 310 H Home Medications: Medications to take at Discharge Atenolol [Tenormin (beta lexie)] 25 mg PO DAILY 05/04/20 Lisinopril [Zestril] 30 mg PO DAILY 05/04/20 Acetaminophen [Tylenol Tablet] 650 mg PO Q6H PRN PRN tab 05/10/20 Amlodipine [Norvasc] 5 mg PO DAILY tab 05/10/20 Aspirin E.C. [Ecotrin] 81 mg PO DAILY tab 05/10/20 Atorvastatin Calcium [Lipitor] 80 mg PO QHS tab 05/10/20 Clopidogrel Bisulfate [Plavix] 75 mg PO DAILY tab 05/10/20 Insulin Glargine [Lantus SoloStar Pen] 50 units SC 1100,2200 pen 05/10/20 Sertraline HCl [Zoloft] 50 mg PO DAILY tab 05/10/20 Primary Care Physician: [facility],[place] [Primary Care Provider] - Disposition: Alf facility Minutes spent on discharge:: 32 Patient Condition:: Stable Medical Necessity - Tobacco Use Smoking Status: Never smoker Tobacco Use: Non-smoker Meaningful Use Info Meaningful Use Diagnoses (Choose all that apply): Ischemic CVA - CVA Therapy Assessed for PT,OT and/or ST?: Yes - Ischemic Stroke Antithrombotic order at d/c?: Yes Reason antithrombotic not ordered: Treatment not Indicated Dx of Atrial fib/flutter?: No Anticoagulant at discharge?: No Reason anticoagulant not ordered: Treatment not Indicated Statins at discharge?: Yes Primary Dx Acute Ischemic CVA?: Yes IV tPA ordered during stay?: No Reason IV t-PA not ordered: Treatment not Indicated Inpatient E&M: 51117 Disch Hosp
== END 2020-05-10 19:15 | disposition skilled nursing facility (03) | DRG 177 ==
LOC: ED 20:27 → MS2 05-04 00:30 → PCU 05-04 14:38
PROVIDERS: Internal Medicine; Internal Medicine Infectious Disease; Admitting Provider Hospitalist; Emergency Provider Emergency Medicine; Visit Provider Internal Medicine
DX: U07.1 COVID-19 (principal); I63.9 Cerebral infarction, unspecified; J12.89 Other viral pneumonia; Z68.42 Body mass index [BMI] 45.0-49.9, adult; G93.49 Other encephalopathy; R09.02 Hypoxemia; R06.89 Other abnormalities of breathing; E11.65 Type 2 diabetes mellitus with hyperglycemia; E66.01 Morbid (severe) obesity due to excess calories; R26.0 Ataxic gait; F32.9 Major depressive disorder, single episode, unspecified; I10 Essential (primary) hypertension; Z79.4 Long term (current) use of insulin; Z79.82 Long term (current) use of aspirin; Z79.02 Long term (current) use of antithrombotics/antiplatelets; Z79.899 Other long term (current) drug therapy
CPT/HCPCS: 36415; 70450; 70496; 70498; 70551; 71045; 80053; 80061; 81001; 82607; 82962; 83036; 84145; 85025; 85027; 86900; 86901; 87077; 87086; 87088; 87186; 87449; 87635; 92507; 92523; 92526; 92610; 93005; 93308; 94762; 97110; 97116; 97162; 97166; 97530; 97535; 99285; J7030; J7050; P9612; Q9967; A4216; U0002